=== PATIENT | male | born 1950 | race Caucasian/White ===

== ENCOUNTER → 2016-04-02 | Outpatient (CLI) | payer MEDICARE, OTHER ==
[2016-04-02 14:59] LABS: RBC, Body Fluid 3045000 /uL
== END | disposition home or self-care (01) ==
LOC: LABPRL 11:32
PROVIDERS: ATTEND Orthopaedic Surgery
DX: M25.061 Hemarthrosis, right knee (principal); M79.672 Pain in left foot; S91.332D Puncture wound without foreign body, left foot, subsequent encounter
CPT/HCPCS: 87070; 87075; 87205; 89050

== ENCOUNTER → 2016-11-26 | Outpatient (CLI) | payer MEDICARE, OTHER ==
--- NOTE | 2016-11-26 16:25 | US ---
EXAMINATION TYPE: US venous doppler duplex LE RT DATE OF EXAM: 11/26/2016 4:12 PM COMPARISON: 2014 right lower extremity venous ultrasound January 10 CLINICAL HISTORY: RLE Knee Fusion,Pain M25.461. SIDE PERFORMED: Right TECHNIQUE: The lower extremity deep venous system is examined utilizing real time linear array sonog violette with graded compression, doppler sonography and color-flow sonography. VESSELS IMAGED: External Iliac Vein (EIV) Common Femoral Vein Deep Femoral Vein Greater Saphenous Vein * Femoral Vein Popliteal Vein Small Saphenous Vein * Proximal Calf Veins (* superficial vessels) Right Leg: Negative for DVT Grayscale, color doppler, spectral doppler imaging performed of the deep veins of the right lower ext remity. There is normal flow, compressibility, vascular waveforms. IMPRESSION: No ultrasound evidence for acute DVT in the right lower extremity.
== END | disposition home or self-care (01) ==
LOC: RADUSWWP 15:47
PROVIDERS: ATTEND Orthopaedic Surgery
DX: I80.9 Phlebitis and thrombophlebitis of unspecified site (principal); M25.561 Pain in right knee; T84.022D Instability of internal right knee prosthesis, subsequent encounter; M25.461 Effusion, right knee; Z09 Encounter for follow-up examination after completed treatment for conditions other than malignant neoplasm; Z96.651 Presence of right artificial knee joint

== ENCOUNTER 2017-10-07 12:07 | Emergency (ER) | payer MEDICARE, OTHER ==
[2017-10-07] MEDS ORDERED: GELATIN SPONGE,ABSORB (SMALL) 1 EACH SPONGE TOPICAL STA (12:35)
[2017-10-07 13:08] LABS: Basophils # (A) 0.1 k/uL (0-0.2); Basophils % (A) 1 %; Eosinophils # (A) 0.4 k/uL (0-0.7); Eosinophils % (A) 3 %; HCT 43.8 % (39.0-53.0); HGB 14.8 gm/dL (13.0-17.5); Lymphocytes # (A) 2.2 k/uL (1.0-4.8); Lymphocytes % (A) 20 %; MCH 29.4 pg (25.0-35.0); MCHC 33.9 g/dL (31.0-37.0); MCV 86.7 fL (80.0-100.0); Mean Platelet Volume 7.7; Monocytes # (A) 0.6 k/uL (0-1.0); Monocytes % (A) 5 %; Neutrophils # (A) 7.7 k/uL (1.3-7.7); Neutrophils % (A) 69 %; Platelet Count 226 k/uL (150-450); RBC 5.05 m/uL (4.30-5.90); RDW 14.2 % (11.5-15.5); WBC 11.1 k/uL (3.8-10.6)
[2017-10-07] MEDS ORDERED: GELATIN SPONGE,ABSORB (LARGE) 1 EACH SPONGE TOPICAL STA (13:11)
[2017-10-07 13:17] LABS: INR 3.2 (<1.2); Partial Thromboplastin Time 35.5 sec (22.0-30.0); Prothrombin Time 29.1 sec (9.0-12.0)
[2017-10-07 13:54] VITALS: RESP 20; TEMP 96.2
--- NOTE | 2017-10-07 14:33 | ED ---
ENT HPI - General Chief complaint: ENT Stated complaint: Sore on lip, lip lac Time Seen by Provider: 10/07/17 12:31 Source: patient Mode of arrival: ambulatory Limitations: no limitations - History of Present Illness Initial comments: This is a 66-year-old male with past medical history of prostate cancer s/p prostectomy and lone atrial fibrillation on warfarin who presents for chief complaint of right upper lip sore that will not stop bleeding. Patient states that about 3-4 days ago he noticed a appeared to be cold sore on the right upper lip that was tender to touch. However yesterday it began bleeding randomly he was able to stop the bleeding with pressure after a few hours. At 7 :30 this morning while he was taking his morning coffee his that began to bleed again, again he applied pressure, tried applying ice and teabags however he was unable to get the bleeding to stop. Patient even tried to put super glue on the lip however would not stick because of the bleeding. Pt states he has not had his PT/INR checked since the of last month and that he usually gets it checked on the or . Pt denies any associated symptoms including ulcers/ sores in other areas of the body, numbness tingling of the lips, or oral cavity. Patient denies any recent fever, chills, shortness of breath, chest pain , back pain, abdominal pain, nausea or vomiting, numbness or tingling, dysuria or hematuria, constipation or diarrhea, headaches or visual changes, or any other complaints. - Related Data Home Medications Medication Instructions Recorded Confirmed Metoprolol Tartrate [Lopressor] 50 mg PO HS 08/18/13 03/13/17 Metoprolol Tartrate [Lopressor] 100 mg PO DAILY 08/18/13 03/13/17 Digoxin [Lanoxin] 250 mcg PO DAILY 03/08/17 03/13/17 Dorzolamide-Timolol 2%/0.5% 1 drop BOTH EYES BID 03/08/17 03/13/17 [dorzolamide-Timolol 2%/0.5%] Previous Rx's Medication Instructions Recorded Warfarin [Coumadin] 7 mg PO DAILY@1800 #30 tablet 08/24/13 HYDROcodone/APAP 10-325MG [White 1 - 2 tab PO Q4-6H PRN #90 tab 03/13/17 10-325] Sennosides-Docusate Sodium 1 tab PO BID #60 tablet 03/13/17 [Senokot-S] Warfarin Sodium [Coumadin] 7.5 mg PO DAILY 30 Days #30 tablet 03/13/17 Allergies Allergy/AdvReac Type Severity Reaction Status Date / Time latex Allergy Swelling Verified 10/07/17 12:21 VINYL TAPE Allergy TOOK OFF Uncoded 10/07/17 12:21 SKIN Review of Systems ROS Statement: Those systems with pertinent positive or pertinent negative responses have been documented in the HPI. ROS Other: All systems not noted in ROS Statement are negative. Past Medical History Past Medical History: Atrial Fibrillation, Cancer, COPD, Eye Disorder, Hypertension, Osteoarthritis (OA) Additional Past Medical History / Comment(s): PROSTATE CA, GLAUCOMA, STATES SCARS ON LUNGS FROM PREVIOUS SX, History of Any Multi-Drug Resistant Organisms: None Reported Past Surgical History: Cardiac Ablation, Heart Catheterization, Joint Replacement, Orthopedic Surgery, Prostate Surgery Additional Past Surgical History / Comment(s): RT HIP TUMOR REMOVED, HAS HAD "2 OUTSIDE, AND 2 INSIDE CARDIAC ABLATIONS", RT TKA Past Anesthesia/Blood Transfusion Reactions: Previous Problems w/ Anesthesia, Postoperative Nausea & Vomiting (PONV) Additional Past Anesthesia/Blood Transfusion Reaction / Comment(s): STATES HAD NUMBNESS TO BUTTOCKS FOR 3 WEEKS POST SPINAL ANESTHESIA FOR PROSTATECTOMY Past Psychological History: No Psychological Hx Reported Smoking Status: Former smoker - Past Family History Father Family Medical History: Cancer Additional Family Medical History / Comment(s): PROSTATE General Exam - General Exam Comments Initial Comments: General: The patient is awake and alert, in no distress, and does not appear acutely ill. Eye: Pupils are equal, round and reactive to light, extra-ocular movements are intact. No nystagmus. There is normal conjunctiva bilaterally. No signs of icterus. Ears, nose, mouth and throat: There are moist mucous membranes, there is an actively bleeding <1/2cm superficial ulcerated lesion to the right upper inner lip- no evidence of FB or injury to deeper tissues. Neck: The neck is supple, there is no tenderness or JVD. Cardiovascular: There is a regular rate and rhythm. No murmur, rub or gallop is appreciated. Respiratory: Lungs are clear to auscultation, respirations are non-labored, breath sounds are equal. No wheezes, stridor, rales, or rhonchi. Gastrointestinal: [Soft, non-distended, non-tender abdomen without masses or organomegaly noted. There is no rebound or guarding present. No CVA tenderness. Bowel sounds are unremarkable.] Musculoskeletal: Normal ROM, no tenderness. Strength 5/5. Sensation intact. Pulses equal bilaterally 2+. Neurological: A&O x 3. CN II-XII intact, There are no obvious motor or sensory deficits. Coordination appears grossly intact. Speech is normal. Skin: Skin is warm and dry and no rashes or lesions are noted. Psychiatric: Cooperative, appropriate mood & affect, normal judgment. Limitations: no limitations Course Vital Signs 10/07/17 10/07/17 12:22 13:54 Temperature 97.9 F 96.2 F L Pulse Rate 73 63 Respiratory 18 20 Rate Blood Pressure 148/85 126/68 O2 Sat by Pulse 96 97 Oximetry Medical Decision Making - Medical Decision Making 66-year-old male with past medical history of lone atrial fibrillation on warfarin presents today for chief complaint of right upper lip bleed. CBC, PT, INR and PTT were obtained revealing elevated PT at 29.1, supratherapeutic INR at 3.2 and PTT of 35.5 patient hemoglobin within normal limits at 14.8. Patient denies any headache, nausea, vomiting, visual changes, abdominal pain, ecchymosis, melena or hematochezia, or bleeding from any other areas of the body. Gelfoam was applied topically to the area of bleeding. Upon reevaluation of the patient had remembered that he took 2 doses of warfarin on Wednesday and accident, he did not mention this during original history taking. After multiple reapplications of gelfoam pt stopped actively bleeding. Case was discussed with Dr. Villatoro in detail at this time we feel that the patient's right lip bleeding is due to supratherapeutic INR from accidental double dosage of warfarin on Wednesday, given patient's negative review of systems, benign physical examination, heart rate and blood pressure within normal limits-no tachycardia, mild elevation of INR and stable hemoglobin at 14.8 We have low suspicion for other areas of active bleeding. Patient was educated risks of supratherapeutic INR, warning symptoms of bleeding, and instructed to follow-up with his primary care for follow-up labs and further medication treatment tomorrow. Patient agrees with plan, and was discharged in stable condition - Lab Data Result diagrams: 10/07/17 12:59 Lab Results 10/07/17 10/07/17 Range/Units 12:59 12:59 WBC 11.1 H (3.8-10.6) k/uL RBC 5.05 (4.30-5.90) m/uL Hgb 14.8 (13.0-17.5) gm/dL Hct 43.8 (39.0-53.0) % MCV 86.7 (80.0-100.0) fL MCH 29.4 (25.0-35.0) pg MCHC 33.9 (31.0-37.0) g/dL RDW 14.2 (11.5-15.5) % Plt Count 226 (150-450) k/uL Neutrophils % 69 % Lymphocytes % 20 % Monocytes % 5 % Eosinophils % 3 % Basophils % 1 % Neutrophils # 7.7 (1.3-7.7) k/uL Lymphocytes # 2.2 (1.0-4.8) k/uL Monocytes # 0.6 (0-1.0) k/uL Eosinophils # 0.4 (0-0.7) k/uL Basophils # 0.1 (0-0.2) k/uL PT 29.1 H (9.0-12.0) sec INR 3.2 H (<1.2) APTT 35.5 H (22.0-30.0) sec Disposition Clinical Impression: Supratherapeutic INR, Superficial injury of lip Disposition: HOME SELF-CARE Condition: Good Instructions: Elevated INR (ED) Additional Instructions: Please skip next dose of warfarin as discussed. Please follow-up with family doctor tomorrow. Please return to emergency room if the symptoms increase or worsen or for any other concerns. Is patient prescribed a controlled substance at d/c from ED?: No Referrals: [facility],Clinic [Primary Care Provider] - 1-2 days Time of Disposition: 16:53
[2017-10-07] MEDS ORDERED: LIDOCAINE 1%-EPI 1:100,000 30 ML VIAL SQ ONE (16:07)
[2017-10-07 17:02] VITALS: BP 139/88; PULSE 77
== END 2017-10-07 17:02 | disposition home or self-care (01) ==
LOC: EC 12:07
DX: S09.93XA Unspecified injury of face, initial encounter (principal); R79.1 Abnormal coagulation profile; I48.91 Unspecified atrial fibrillation; I10 Essential (primary) hypertension; Z87.891 Personal history of nicotine dependence; Z85.9 Personal history of malignant neoplasm, unspecified; Z95.818 Presence of other cardiac implants and grafts; Z79.899 Other long term (current) drug therapy; Z91.040 Latex allergy status; Z91.048 Other nonmedicinal substance allergy status; Z53.8 Procedure and treatment not carried out for other reasons
CPT/HCPCS: 36415; 85025; 85610; 85730; 99283

== ENCOUNTER 2022-12-30 12:04 | Inpatient (IN) | payer MEDICARE, OTHER ==
[2022-12-30] MEDS ORDERED: FUROSEMIDE 10 MG/ML 10 ML VIAL IV STA (13:20)
--- NOTE | 2022-12-30 13:23 | ED ---
General Adult HPI - General Chief complaint: Recheck/Abnormal Lab/Rx Stated complaint: leg swelling Time Seen by Provider: 12/30/22 13:05 Source: patient, RN notes reviewed, old records reviewed Mode of arrival: ambulatory - History of Present Illness Initial comments: This is a 72-year-old male presents emergency Department complaining of swollen legs she states that getting considerably worse per patient states he is short of breath but no worse than normal. Patient states his legs are so big that it is difficult to walk on them he is worried that he is given a fall and hurt himself. Patient states he is on Lasix twice a day and is not helping. Patient also complains of having scratched his leg and now the area around that scratches very red. Patient denies any fever chills. Patient denies any chest pain or palpitations. Patient states she doesn't otherwise legs are swollen. Patient states he does take metoprolol for his atrial fibrillation. Patient denies any abdominal pain patient denies nausea vomiting diarrhea - Related Data Home Medications Medication Instructions Recorded Confirmed Metoprolol Tartrate [Lopressor] 100 mg PO DAILY 08/18/13 12/30/22 Aspirin EC [Ecotrin Low Dose] 81 mg PO DAILY 12/30/22 12/30/22 Cholecalciferol [Vitamin D3 (25 50 mcg PO DAILY 12/30/22 12/30/22 Mcg = 1000 Iu)] Furosemide [Lasix] 40 mg PO BID@0500,1130 12/30/22 12/30/22 Latanoprost [Latanoprost 0.005%] 1 drop BOTH EYES HS 12/30/22 12/30/22 Metoprolol Tartrate [Lopressor] 50 mg PO HS 12/30/22 12/30/22 Warfarin [Coumadin] 7 mg PO HS 12/30/22 12/30/22 Zinc Gluconate [Zinc] 50 mg PO DAILY 12/30/22 12/30/22 Allergies Allergy/AdvReac Type Severity Reaction Status Date / Time latex Allergy Swelling Verified 12/30/22 16:32 at contact potassium chloride AdvReac Nausea & Verified 12/30/22 16:32 Vomiting & Diarrhea VINYL TAPE AdvReac TOOK OFF Uncoded 12/30/22 16:32 SKIN Review of Systems ROS Statement: Those systems with pertinent positive or pertinent negative responses have been documented in the HPI. ROS Other: All systems not noted in ROS Statement are negative. Past Medical History Past Medical History: Atrial Fibrillation, Cancer, COPD, Diabetes Mellitus, Eye Disorder, Hypertension, Osteoarthritis (OA) Additional Past Medical History / Comment(s): PROSTATE CA, GLAUCOMA, STATES SCARS ON LUNGS FROM PREVIOUS SX, History of Any Multi-Drug Resistant Organisms: None Reported Past Surgical History: Cardiac Ablation, Heart Catheterization, Joint Replac ement, Orthopedic Surgery, Prostate Surgery Additional Past Surgical History / Comment(s): RT HIP TUMOR REMOVED, HAS HAD "2 OUTSIDE, AND 2 INSIDE CARDIAC ABLATIONS", RT TKA Past Anesthesia/Blood Transfusion Reactions: Previous Problems w/ Anesthesia, Postoperative Nausea & Vomiting (PONV) Additional Past Anesthesia/Blood Transfusion Reaction / Comment(s): STATES HAD NUMBNESS TO BUTTOCKS FOR 3 WEEKS POST SPINAL ANESTHESIA FOR PROSTATECTOMY Past Psychological History: No Psychological Hx Reported Smoking Status: Former smoker Past Alcohol Use History: Occasional Past Drug Use History: Marijuana - Past Family History Father Family Medical History: Cancer Additional Family Medical History / Comment(s): PROSTATE General Exam - General Exam Comments Initial Comments: GENERAL: Patient is well-developed and well-nourished. Patient is nontoxic and well- hydrated and is in no acute distress. ENT: Neck is soft and supple. No significant lymphadenopathy is noted. Oropharynx is clear. Moist mucous membranes. Neck has full range of motion without eliciting any pain. EYES: The sclera were anicteric and conjunctiva were pink and moist. Extraocular movements were intact and pupils were equal round and reactive to light. Eyelids were unremarkable. PULMONARY: Unlabored respirations. Good breath sounds bilaterally. No audible rales rhonchi or wheezing was noted. CARDIOVASCULAR: There is a regular rate and rhythm without any murmurs gallops or rubs. ABDOMEN: Soft and nontender with normal bowel sounds. SKIN: Patient has a small area of excoriation where he scratched on his right lower leg in the area around it is very erythematous. NEUROLOGIC: Patient is alert and oriented x3. Cranial nerves II through XII are grossly intact. Motor and sensory are also intact. Normal speech, volume and content. Symmetrical smile. MUSCULOSKELETAL: Normal extremities with adequate strength and full range of motion. 3+ edema bilaterally. LYMPHATICS: No significant lymphadenopathy is noted PSYCHIATRIC: Normal psychiatric evaluation. Course Vital Signs 10/11/23 10/11/23 10/11/23 12:35 13:16 14:09 Temperature 98 F Pulse Rate 88 85 99 Respiratory 18 20 18 Rate Blood Pressure 134/81 121/85 118/77 O2 Sat by Pulse 95 96 96 Oximetry 12/30/22 12/30/22 12/30/22 15:34 16:05 17:13 Temperature Pulse Rate 100 123 H 109 H Respiratory 19 18 19 Rate Blood Pressure 103/85 113/89 114/80 O2 Sat by Pulse 98 97 99 Oximetry Medical Decision Making - Medical Decision Making EKG is interpreted by myself. EKG shows atrial fibrillation with rapid ventricular response at 100 bpm QRS is 101 Q-T intervals 367 QTC is 424. Patient's EKG shows no ST segment elevation or depression.Was pt. sent in by a medical professional or institution ([facility], P[employer]ER TESTER, urgent care, hospital, or [place] health care facility...) When possible be specific @ -No Did you speak to anyone other than the patient for history (EMS, parent, family, police, friend...)? What history was obtained from this source @ -No Did you review nursing and triage notes (agree or disagree)? Why? @ -I reviewed and agree with nursing and triage notes Were old charts reviewed (outside hosp., previous admission, EMS record, old EK G, old radiological studies, urgent care reports/EKG's, [place] health care facility records)? Report findings @ -I reviewed prior chart from prior laboratory this patient Differential Diagnosis (chest pain, altered mental status, abdominal pain women, abdominal pain men, vaginal bleeding, weakness, fever, dyspnea, syncope, headache, dizziness, GI bleed, back pain, seizure, CVA, palpatations, mental health, musculoskeletal)? @ -Cellulitis, pedal edema, pulmonary edema, DVT, is not all inclusive list EKG interpreted by me (3pts min.). @ -As above X-rays interpreted by me (1pt min.). @ -Chest x-ray shows no acute abnormality CT interpreted by me (1pt min.). @ -None done U/S interpreted by me (1pt. min.). @ -None done What testing was considered but not performed or refused? (CT, X-rays, U/S, labs)? Why? @ -None What meds were considered but not given or refused? Why? @ -None Did you discuss the management of the patient with other professionals (professionals i.e. , PA, PAPER TESTER, lab, RT, psych nurse, manager social responsibility, blocker polishing, teacher, fare enforcement officer, upper caser)? Give summary @ -I spoke with sound physician's and they agreed to admit the patient Was smoking cessation discussed for >3mins.? @ -No Was critical care preformed (if so, how long)? @ -No Were there social determinants of health that impacted care today? How? (Homelessness, low income, unemployed, alcoholism, drug addiction, transportation, low edu. Level, literacy, decrease access to med. care, penitentiary, rehab)? @ -No Was there de-escalation of care discussed even if they declined (Discuss DNR or withdrawal of care, Hospice)? DNR status @ -No What co-morbidities impacted this encounter? (DM, HTN, Smoking, COPD, CAD, Cancer, CVA, ARF, Chemo, Hep., AIDS, mental health diagnosis, sleep apnea, morbid obesity)? @ -None Was patient admitted / discharged? Hospital course, mention meds given and route, prescriptions, significant lab abnormalities, going to OR and other pertinent info. @ -Patient came into the hospital suspect this is swollen and there was an area he scratched and is become very erythematous. Patient states she's unstable on his feet x-rays and following get hurt. Patient states the swelling is legs continues to get worse and worse he does not to do about it. Patient states he is unable to get his compression stockings on or off Undiagnosed new problem with uncertain prognosis? @ -No Drug Therapy requiring intensive monitoring for toxicity (Heparin, Nitro, Insulin, Cardizem)? @ -No Were any procedures done? @ -No Diagnosis/symptom? @ -Pedal edema Acute, or Chronic, or Acute on Chronic? @ -Acute on chronic Uncomplicated (without systemic symptoms) or Complicated (systemic symptoms)? @ -Complicated Side effects of treatment? @ -No Exacerbation, Progression, or Severe Exacerbation? @ -No Poses a threat to life or bodily function? How? (Chest pain, [place], MA, pneumonia, PE, COPD, DKA, ARF, appy, cholecystitis, CVA, Diverticulitis, Homicidal, Suicidal, threat to staff... and all critical care pts) @ -No Diagnosis/symptom? @ -Cellulitis leg Acute, or Chronic, or Acute on Chronic? @ -Acute Uncomplicated (without systemic symptoms) or Complicated (systemic symptoms)? @ -Complicated Side effects of treatment? @ -none Exacerbation, Progression, or Severe Exacerbation] @ -no Poses a threat to life or bodily function? @ -no - Lab Data Result diagrams: 12/30/22 13:28 12/30/22 13:28 Lab Results 12/30/22 12/30/22 12/30/22 Range/Units 13:28 13:28 13:28 WBC 9.7 (3.8-10.6) k/uL RBC 4.43 (4.30-5.90) m/uL Hgb 13.2 (13.0-17.5) gm/dL Hct 39.2 (39.0-53.0) % MCV 88.3 (80.0-100.0) fL MCH 29.8 (25.0-35.0) pg MCHC 33.7 (31.0-37.0) g/dL RDW 13.8 (11.5-15.5) % Plt Count 244 (150-450) k/uL MPV 8.0 Neutrophils % 71 % Lymphocytes % 20 % Monocytes % 4 % Eosinophils % 3 % Basophils % 1 % Neutrophils # 6.9 (1.3-7.7) k/uL Lymphocytes # 1.9 (1.0-4.8) k/uL Monocytes # 0.4 (0-1.0) k/uL Eosinophils # 0.3 (0-0.7) k/uL Basophils # 0.1 (0-0.2) k/uL PT 24.2 H (9.0-12.0) sec INR 2.5 H (<1.2) APTT 39.3 H (22.0-30.0) sec Sodium 139 (137-145) mmol/L Potassium 5.2 H (3.5-5.1) mmol/L Chloride 103 (98-107) mmol/L Carbon Dioxide 24 (22-30) mmol/L Anion Gap 12 mmol/L BUN 27 H (9-20) mg/dL Creatinine 0.79 (0.66-1.25) mg/dL Est GFR (CKD-EPI)AfAm >90 (>60 ml/min/1.73 sqM) Est GFR (CKD-EPI)NonAf 89 (>60 ml/min/1.73 sqM) Glucose 129 H (74-99) mg/dL Plasma Lactic Acid Dragan (0.7-2.0) mmol/L Calcium 9.0 (8.4-10.2) mg/dL Magnesium 2.0 (1.6-2.3) mg/dL Total Bilirubin 0.7 (0.2-1.3) mg/dL AST 34 (17-59) U/L ALT 18 (4-49) U/L Alkaline Phosphatase 59 (38-126) U/L Troponin I (0.000-0.034) ng/mL NT-Pro-B Natriuret Pep 593 pg/mL Total Protein 7.7 (6.3-8.2) g/dL Albumin 4.1 (3.5-5.0) g/dL 12/30/22 12/30/22 Range/Units 13:28 13:28 WBC (3.8-10.6) k/uL RBC (4.30-5.90) m/uL Hgb (13.0-17.5) gm/dL Hct (39.0-53.0) % MCV (80.0-100.0) fL MCH (25.0-35.0) pg MCHC (31.0-37.0) g/dL RDW (11.5-15.5) % Plt Count (150-450) k/uL MPV Neutrophils % % Lymphocytes % % Monocytes % % Eosinophils % % Basophils % % Neutrophils # (1.3-7.7) k/uL Lymphocytes # (1.0-4.8) k/uL Monocytes # (0-1.0) k/uL Eosinophils # (0-0.7) k/uL Basophils # (0-0.2) k/uL PT (9.0-12.0) sec INR (<1.2) APTT (22.0-30.0) sec Sodium (137-145) mmol/L Potassium (3.5-5.1) mmol/L Chloride (98-107) mmol/L Carbon Dioxide (22-30) mmol/L Anion Gap mmol/L BUN (9-20) mg/dL Creatinine (0.66-1.25) mg/dL Est GFR (CKD-EPI)AfAm (>60 ml/min/1.73 sqM) Est GFR (CKD-EPI)NonAf (>60 ml/min/1.73 sqM) Glucose (74-99) mg/dL Plasma Lactic Acid Dragan 1.6 (0.7-2.0) mmol/L Calcium (8.4-10.2) mg/dL Magnesium (1.6-2.3) mg/dL Total Bilirubin (0.2-1.3) mg/dL AST (17-59) U/L ALT (4-49) U/L Alkaline Phosphatase (38-126) U/L Troponin I <0.012 (0.000-0.034) ng/mL NT-Pro-B Natriuret Pep pg/mL Total Protein (6.3-8.2) g/dL Albumin (3.5-5.0) g/dL Disposition Clinical Impression: Cellulitis, leg, Pedal edema Disposition: ADMITTED IP TO THIS HOSP Referrals: [facility],Clinic [Primary Care Provider] - 1-2 days Time of Disposition: 17:35
[2022-12-30 13:41] LABS: Basophils # (A) 0.1 k/uL (0-0.2); Basophils % (A) 1 %; Eosinophils # (A) 0.3 k/uL (0-0.7); Eosinophils % (A) 3 %; HCT 39.2 % (39.0-53.0); HGB 13.2 gm/dL (13.0-17.5); Lymphocytes # (A) 1.9 k/uL (1.0-4.8); Lymphocytes % (A) 20 %; MCH 29.8 pg (25.0-35.0); MCHC 33.7 g/dL (31.0-37.0); MCV 88.3 fL (80.0-100.0); Monocytes # (A) 0.4 k/uL (0-1.0); Monocytes % (A) 4 %; Neutrophils # (A) 6.9 k/uL (1.3-7.7); Neutrophils % (A) 71 %; Platelet Count 244 k/uL (150-450); RBC 4.43 m/uL (4.30-5.90); RDW 13.8 % (11.5-15.5); WBC 9.7 k/uL (3.8-10.6)
[2022-12-30 13:47] LABS: INR 2.5 (<1.2); Partial Thromboplastin Time 39.3 sec (22.0-30.0); Prothrombin Time 24.2 sec (9.0-12.0)
[2022-12-30 14:00] LABS: ALT 18 U/L (4-49); AST 34 U/L (17-59); African American GFR (CKD) >90 (>60 ml/min/1.73 sqM); Albumin 4.1 g/dL (3.5-5.0); Alkaline Phosphatase 59 U/L (38-126); Anion Gap 12 mmol/L; Blood Urea Nitrogen 27 mg/dL (9-20); Carbon Dioxide 24 mmol/L (22-30); Chloride 103 mmol/L (98-107); Glucose 129 mg/dL (74-99); Non-African American GFR(CKD) 89 (>60 ml/min/1.73 sqM); Sodium 139 mmol/L (137-145); Total Bilirubin 0.7 mg/dL (0.2-1.3); Total Protein 7.7 g/dL (6.3-8.2)
[2022-12-30 14:07] LABS: Potassium 5.2 mmol/L (3.5-5.1)
[2022-12-30 14:08] LABS: NT-Pro-B-Type Natriuretic Pept 593 pg/mL
--- NOTE | 2022-12-30 14:08 | XR ---
EXAMINATION TYPE: XR chest 2V DATE OF EXAM: 12/30/2022 COMPARISON: NONE HISTORY: Shortness of breath TECHNIQUE: Frontal and lateral views of the chest are obtained. FINDINGS: Scattered senescent parenchymal changes noted. Hyperinflation compatible with COPD. There is bronchial wall thickening as well as mild interstitial prominence about the right perihilar region. Correlate for underlying pneumonitis. Heart size is stable. Mediastinal structures are stable and grossly unremarkable. No evidence for hilar prominence. Degenerative changes dorsal spine. IMPRESSION: 1. There is bronchial wall thickening as well as mild interstitial prominence about the right perihil ar region. Correlate for underlying pneumonitis.
--- NOTE | 2022-12-30 22:03 | P.HPIM ---
History of Present Illness H&P Date: 12/30/22 Patient is a 72-year-old male with a PMH of A. fib on Coumadin, chronic lower extremity edema (unknown cause as per patient) on Lasix, prostate cancer status post prostatectomy who presents to the emergency room with complaints of lower extremity swelling and redness, with shortness of breath. Patient reports gradually worsening lower extremity edema over the past 1 year despite compliance with oral Lasix. Denies ever being diagnosed with congestive heart failure. Also reports having an abrasion on the right anterior leg multiple times from a chair he was using over the past 2 weeks resulting in painful redness and swelling of the right leg. Denies chest discomfort, shortness of breath, cough, fever, chills, nausea, vomiting, diaphoresis, or dizziness. Reports ambulating without assistive devices at home but occasionally using a cane outside. In the emergency room, chest x-ray revealed bronchial wall thickening with mild interstitial prominence, concerning for pneumonitis. EKG revealed A. fib with RVR at 100 bpm with an incomplete right bundle branch block with T-wave inversion in lead V3. Laboratory evaluation was remarkable for troponin less than 0.012, proBNP 593, glucose 129, lactic acid 1.6, and potassium 5.2 (hemolyzed), and INR 2.5. ED documentation reviewed and case discussed with ED provider. Review of systems: Pertinent positives and negatives as discussed in HPI, a complete review of systems was performed and all other systems are negative. Physical examination: Vital signs reviewed General: non toxic, no distress, appears at stated age, morbidly obese Derm: warm, bilateral lower extremity venous stasis changes with right lower extremity anterior erythema and warmth with tenderness and oozing Head: atraumatic, normocephalic, symmetric Eyes: EOMI, no lid lag, anicteric sclera, pupils equal round reactive to light ENT: Nose and ears atraumatic Neck: No cervical lymphadenopathy, trachea midline, supple Mouth: no lip lesion, mucus membranes moist Cardiovascular: Irregularly irregular, no murmur, positive dorsalis pedis pulse bilateral, 2+ bilateral lower extremity pitting edema Lungs: CTA bilateral, no rhonchi, no rales, no accessory muscle use Abdominal: soft, nontender to palpation, no guarding Ext: muscle strength 5 out of 5 in all 4 extremities grossly, no gross muscle atrophy, no contractures, Neuro: CN II-XI grossly intact, no gross focal neuro deficits Psych: Alert, oriented, appropriate affect Assessment: Right lower extremity cellulitis Bilateral lower extremity edema, rule out congestive heart failure (borderline proBNP) Bridgett almanzar, on Coumadin (therapeutic INR) Imaging: In the emergency room, chest x-ray revealed bronchial wall thickening with mild interstitial prominence, concerning for pneumonitis. EKG revealed A. fib with RVR at 100 bpm with an incomplete right bundle branch block with T-wave inversion in lead V3. Data Review: Laboratory evaluation was remarkable for troponin less than 0.012, proBNP 593, glucose 129, lactic acid 1.6, and potassium 5.2 (hemolyzed), and INR 2.5. Plan: Continue ceftriaxone IV for Streptococcus and MSSA coverage. No obvious indication for MRSA coverage noted F/u blood cultures Obtain echocardiogram Cardiac monitoring Continue Lasix 40 mg IV every 12 hourly Intake and output, daily weights Monitor electrolytes daily DVT prophylaxis: Coumadin The patient is admitted with an anticipated greater than 2 midnight stay for evaluation of cellulitis CODE STATUS: Full Code Discussed with: Patient Anticipated discharge place: Home Past Medical History Past Medical History: Atrial Fibrillation, Cancer, COPD, Diabetes Mellitus, Eye Disorder, Hypertension, Osteoarthritis (OA) Additional Past Medical History / Comment(s): PROSTATE CA, GLAUCOMA, STATES SCARS ON LUNGS FROM PREVIOUS SX, History of Any Multi-Drug Resistant Organisms: None Reported Past Surgical History: Cardiac Ablation, Heart Catheterization, Joint Replacement, Orthopedic Surgery, Prostate Surgery Additional Past Surgical History / Comment(s): RT HIP TUMOR REMOVED, HAS HAD "2 OUTSIDE, AND 2 INSIDE CARDIAC ABLATIONS", RT TKA Past Anesthesia/Blood Transfusion Reactions: Previous Problems w/ Anesthesia, Postoperative Nausea & Vomiting (PONV) Additional Past Anesthesia/Blood Transfusion Reaction / Comment(s): STATES HAD NUMBNESS TO BUTTOCKS FOR 3 WEEKS POST SPINAL ANESTHESIA FOR PROSTATECTOMY Past Psychological History: No Psychological Hx Reported Smoking Status: Former smoker Past Alcohol Use History: Occasional Past Drug Use History: Marijuana - Past Family History Father Family Medical History: Cancer Additional Family Medical History / Comment(s): PROSTATE Medications and Allergies Home Medications Medication Instructions Recorded Confirmed Type Metoprolol Tartrate [Lopressor] 100 mg PO DAILY 08/18/13 12/30/22 History Aspirin EC [Ecotrin Low Dose] 81 mg PO DAILY 12/30/22 12/30/22 History Cholecalciferol [Vitamin D3 (25 50 mcg PO DAILY 12/30/22 12/30/22 History Mcg = 1000 Iu)] Furosemide [Lasix] 40 mg PO BID@0500,1130 12/30/22 12/30/22 History Latanoprost [Latanoprost 0.005%] 1 drop BOTH EYES HS 12/30/22 12/30/22 History Metoprolol Tartrate [Lopressor] 50 mg PO HS 12/30/22 12/30/22 History Warfarin [Coumadin] 7 mg PO HS 12/30/22 12/30/22 History Zinc Gluconate [Zinc] 50 mg PO DAILY 12/30/22 12/30/22 History Allergies Allergy/AdvReac Type Severity Reaction Status Date / Time latex Allergy Swelling Verified 12/30/22 16:32 at contact potassium chloride AdvReac Nausea & Verified 12/30/22 16:32 Vomiting & Diarrhea VINYL TAPE AdvReac TOOK OFF Uncoded 12/30/22 16:32 SKIN Physical Exam Vitals: Vital Signs Temp Pulse Resp BP Pulse Ox 12/30/22 20:00 122 H 18 130/87 98 12/30/22 18:08 98.1 F 104 H 18 117/82 96 12/30/22 17:13 109 H 19 114/80 99 12/30/22 16:05 123 H 18 113/89 97 12/30/22 15:34 100 19 103/85 98 12/30/22 14:09 99 18 118/77 96 12/30/22 13:16 85 20 121/85 96 12/30/22 12:35 98 F 88 18 134/81 95 Intake and Output 12/30/22 12/30/22 12/30/22 06:59 14:59 22:59 Output Total 1100 Balance -1100 Output: Urine 1100 Other: Weight 140.614 kg Results CBC & Chem 7: 12/30/22 13:28 12/30/22 13:28 Labs: Abnormal Lab Results - Last 24 Hours (Table) 12/30/22 12/30/22 Range/Units 13:28 13:28 PT 24.2 H (9.0-12.0) sec INR 2.5 H (<1.2) APTT 39.3 H (22.0-30.0) sec Potassium 5.2 H (3.5-5.1) mmol/L BUN 27 H (9-20) mg/dL Glucose 129 H (74-99) mg/dL
[2022-12-30] MEDS: FUROSEMIDE 10 MG/ML 10 ML VIAL IV SCH (22:42)
[2022-12-31] MEDS ORDERED: FUROSEMIDE 10 MG/ML 10 ML VIAL IV SCH
[2022-12-31] MEDS: WARFARIN 2 MG TAB PO SCH ×2 (01:00→22:50)
[2022-12-31] MEDS ORDERED: METOPROLOL TARTRATE 50 MG TAB PO SCH (01:00)
[2022-12-31] MEDS: WARFARIN 5 MG TAB PO SCH ×2 (01:01→22:50)
[2022-12-31] MEDS: METOPROLOL TARTRATE 50 MG TAB PO SCH ×3 (01:01→22:29)
[2022-12-31 07:47] LABS: HCT 42.1 % (39.0-53.0); HGB 13.9 gm/dL (13.0-17.5); MCH 29.2 pg (25.0-35.0); MCV 88.4 fL (80.0-100.0); Mean Platelet Volume 8.2; Platelet Count 248 k/uL (150-450); RBC 4.76 m/uL (4.30-5.90); RDW 13.5 % (11.5-15.5); WBC 10.1 k/uL (3.8-10.6)
[2022-12-31 07:48] LABS: INR 2.2 (<1.2); Prothrombin Time 21.8 sec (9.0-12.0)
[2022-12-31 08:05] LABS: African American GFR (CKD) >90 (>60 ml/min/1.73 sqM); Anion Gap 12 mmol/L; Blood Urea Nitrogen 24 mg/dL (9-20); Calcium 9.1 mg/dL (8.4-10.2); Carbon Dioxide 25 mmol/L (22-30); Chloride 103 mmol/L (98-107); Glucose 124 mg/dL (74-99); Non-African American GFR(CKD) 90 (>60 ml/min/1.73 sqM); Sodium 140 mmol/L (137-145)
[2022-12-31] MEDS: ASPIRIN 81 MG PO SCH (08:16)
[2022-12-31] MEDS: FUROSEMIDE 10 MG/ML 10 ML VIAL IV SCH ×2 (11:29→22:29)
--- NOTE | 2022-12-31 15:14 | P.PN ---
Subjective Progress Note Date: 12/31/22 Patient is a 72-year-old male with a PMH of A. jenelle on Coumadin, chronic lower extremity edema (unknown cause as per patient) on Lasix, prostate cancer status post prostatectomy who presents to the emergency room with complaints of lower extremity swelling and redness, with shortness of breath. Patient reports gradually worsening lower extremity edema over the past 1 year despite compliance with oral Lasix. Denies ever being diagnosed with congestive heart failure. Also reports having an abrasion on the right anterior leg multiple times from a chair he was using over the past 2 weeks resulting in painful redness and swelling of the right leg. Denies chest discomfort, shortness of breath, cough, fever, chills, nausea, vomiting, diaphoresis, or dizziness. Reports ambulating without assistive devices at home but occasionally using a cane outside. In the emergency room, chest x-ray revealed bronchial wall thickening with mild interstitial prominence, concerning for pneumonitis. EKG revealed A. fib with RVR at 100 bpm with an incomplete right bundle branch block with T-wave inversion in lead V3. Laboratory evaluation was remarkable for troponin less than 0.012, proBNP 593, glucose 129, lactic acid 1.6, and potassium 5.2 (hemolyzed), and INR 2.5. Patient was seen and examined. Continues to report RLE > LLE swelling and redness. Otherwise no complaints. CBC unremarkable. INR 2.2. BMP BUN 24, glucose 124. General: non toxic, no distress, appears at stated age, morbidly obese Derm: warm, bilateral lower extremity venous stasis changes with right lower extremity anterior erythema and warmth with tenderness and oozing Head: atraumatic, normocephalic, symmetric Eyes: EOMI, no lid lag, anicteric sclera ENT: Nose and ears atraumatic Neck: No cervical lymphadenopathy, trachea midline, supple Cardiovascular: Irregularly irregular, no murmur, positive dorsalis pedis pulse bilateral, 2+ bilateral lower extremity pitting edema Lungs: CTA bilateral, no rhonchi, no rales, no accessory muscle use Ext: muscle strength 5 out of 5 in all 4 extremities grossly, no gross muscle atrophy, no contractures, Neuro: no gross focal neuro deficits Psych: Alert, oriented, appropriate affect Right lower extremity cellulitis Bilateral lower extremity edema, rule out congestive heart failure (borderline proBNP) ARodrigo almanzar, on Coumadin (therapeutic INR) Based on my assessment of this patient, this patient meets a high complexity level of care. Patient has an acute diagnosis of RLE cellulitis and bilateral pitting edema that poses a threat to life or bodily function. Right lower extremity cellulitis: Rocephin 2g IV QD. Follow BCx. Obtain ESR and CRP. Bilateral lower extremity edema, rule out congestive heart failure (borderline proBNP): Lasix 40 mg IV BID. Awaiting echocardiogram. A. fib, on Coumadin (therapeutic INR) I have reviewed the following protection consultant notes: I have reviewed the results of the following tests: CBC, BMP I have ordered the following tests: ESR, CRP, BMP I have discussed the care of this patient with the following independent historian: I have independently interpreted the following test below: I have discussed the management of this patient with the following physician: This patient has a high risk of morbidity due to the following reasons: Lasix IV - intensive monitoring - renal function Objective - Vital Signs Vital signs: Vital Signs Temp 97.3 F L 12/31/22 08:10 Pulse 88 12/31/22 11:21 Resp 18 12/31/22 11:21 BP 126/80 12/31/22 11:21 Pulse Ox 98 12/31/22 11:21 FiO2 Intake & Output 12/30/22 12/31/22 12/31/22 18:59 06:59 18:59 Output Total 1100 1860 320 Balance -1100 -1860 -320 Weight 140.614 kg Output: Urine 1100 1860 320 Other: # Voids 2 1 - Labs CBC & Chem 7: 12/31/22 07:08 12/31/22 07:08 Labs: Abnormal Lab Results - Last 24 Hours (Table) 12/31/22 12/31/22 Range/Units 07:08 07:08 PT 21.8 H (9.0-12.0) sec INR 2.2 H (<1.2) BUN 24 H (9-20) mg/dL Glucose 124 H (74-99) mg/dL
--- NOTE | 2022-12-31 20:02 | CA ---
Transthoracic Echo Report Name: Parveen Corcoran Age: 72 Gender: M : 1950 Exam Date: 12/31/2022 14:29 Exam Location: [place] [facility] Ht (in): 70 Wt (lb): 310 Ordering Physician: Malclom Burns MD Attending/Referring Phys: Psychiatric Technician Akua Reddy RDCS Procedure CPT: Indications: kerri SAMANTHA Cardiac Hx: Technical Quality: Technically difficult study Contrast 1: Definity Total Dose (mL): 2 Contrast 2: Total Dose (mL): MEASUREMENTS (Male / Female) Normal Values 2D ECHO LV Diastolic Diameter PLAX 4.8 cm 4.2 - 5.9 / 3.9 - 5.3 cm LV Systolic Diameter PLAX 4.1 cm IVS Diastolic Thickness 1.3 cm 0.6 - 1.0 / 0.6 - 0.9 cm LVPW Diastolic Thickness 1.3 cm 0.6 - 1.0 / 0.6 - 0.9 cm LV Relative Wall Thickness 0.5 RV Internal Dim ED PLAX 3.9 cm LA Systolic Diameter LX 4.4 cm 3.0 - 4.0 / 2.7 - 3.8 cm LV Diastolic Volume MOD BP 80.0 cm??? 67 - 155 / 56 - 104 cm??? LV Systolic Volume MOD BP 20.6 cm??? 22 - 58 / 19 - 49 cm??? LV Ejection Fraction MOD BP 74.2 % >= 55 % LV Cardiac Index MOD BP 2546.6 cm???/min???m??? LV Diastolic Volume MOD 4C 100.7 cm??? LV Systolic Volume MOD 4C 39.3 cm??? LV Ejection Fraction MOD 4C 61.0 % LV Cardiac Index MOD 4C 2633.3 cm???/min???m??? LV Diastolic Length 4C 7.8 cm LV Systolic Length 4C 6.9 cm LV Diastolic Volume MOD 2C 54.3 cm??? LV Systolic Volume MOD 2C 11.4 cm??? LV Ejection Fraction MOD 2C 79.0 % LV Cardiac Index MOD 2C 1841.7 cm???/min???m??? LV Diastolic Length 2C 6.6 cm LV Systolic Length 2C 6.8 cm LA Volume 81.6 cm??? 18 - 58 / 22 - 52 cm??? LA Volume Index 30.2 cm???/m??? 16 - 28 cm???/m??? M-MODE Aortic Root Diameter MM 3.8 cm MV E Point Septal Separation 1.1 cm AV Cusp Separation MM 2.3 cm DOPPLER AV Peak Velocity 96.2 cm/s AV Peak Gradient 3.7 mmHg MV Area PHT 3.4 cm??? Mitral E Point Velocity 85.4 cm/s Mitral A Point Velocity 63.0 cm/s Mitral E to A Ratio 1.4 MV Deceleration Time 223.1 ms TR Peak Velocity 257.1 cm/s TR Peak Gradient 26.4 mmHg Right Ventricular Systolic Press 29.8 mmHg FINDINGS Left Ventricle Left ventricular ejection fraction is estimated at 40-45 %. Left ventricular cavity size normal. Mild concentric left ventricular hypertrophy. Right Ventricle Moderate right ventricular dilatation. Right ventricular systolic pressure within normal limits. Right Atrium Normal right atrial size. Left Atrium Mildly increased left atrial diameter. Mildly increased left atrial volume. Mildly increased left atrial area. Mitral Valve Structurally normal mitral valve. Mild mitral regurgitation. Aortic Valve Trileaflet aortic valve. No aortic valve stenosis or regurgitation. Tricuspid Valve Structurally normal tricuspid valve. Trace to mild tricuspid regurgitation. Pulmonic Valve Pulmonic valve not well visualized. Pericardium No pericardial effusion. Aorta Mild aortic dilatation at the level of the sinuses of valsalva 38 mm CONCLUSIONS Reduced LV systolic function ejection fraction around 40-45% large apical hypokinesis Enlarged right ventricle Previewed by: Dr. Buzz Stapleton MD (Electronically Signed) Final Date: 31 December 2022 20:01
[2022-12-31] MEDS: LATANOPROST 0.005% OPHTH DROPS 2.5 ML BTL BOTH EYES SCH (22:50)
[2023-01-01] MEDS ORDERED: METOPROLOL TARTRATE 25 MG TAB PO STA (04:16)
[2023-01-01 07:40] LABS: INR 2.3 (<1.2); Prothrombin Time 22.9 sec (9.0-12.0)
[2023-01-01] MEDS: FUROSEMIDE 10 MG/ML 10 ML VIAL IV SCH ×2 (08:30→21:47)
[2023-01-01] MEDS: ASPIRIN 81 MG PO SCH (08:31)
[2023-01-01] MEDS: METOPROLOL TARTRATE 50 MG TAB PO SCH ×2 (08:31→21:46)
[2023-01-01 08:49] LABS: African American GFR (CKD) >90 (>60 ml/min/1.73 sqM); Anion Gap 9 mmol/L; Blood Urea Nitrogen 25 mg/dL (9-20); Calcium 9.1 mg/dL (8.4-10.2); Carbon Dioxide 30 mmol/L (22-30); Chloride 100 mmol/L (98-107); Glucose 120 mg/dL (74-99); Non-African American GFR(CKD) 85 (>60 ml/min/1.73 sqM); Sodium 139 mmol/L (137-145)
[2023-01-01 09:05] LABS: C Reactive Protein 3.2 mg/dL (<1.0)
[2023-01-01 11:55] VITALS: BMI 44.2
--- NOTE | 2023-01-01 12:11 | P.PN ---
Subjective Progress Note Date: 01/01/23 Patient is a 72-year-old male with a PMH of A. fib on Coumadin, chronic lower extremity edema (unknown cause as per patient) on Lasix, prostate cancer status post prostatectomy who presents to the emergency room with complaints of lower extremity swelling and redness, with shortness of breath. Patient reports gradually worsening lower extremity edema over the past 1 year despite compliance with oral Lasix. Denies ever being diagnosed with congestive heart failure. Also reports having an abrasion on the right anterior leg multiple times from a chair he was using over the past 2 weeks resulting in painful redness and swelling of the right leg. Denies chest discomfort, shortness of breath, cough, fever, chills, nausea, vomiting, diaphoresis, or dizziness. Reports ambulating without assistive devices at home but occasionally using a cane outside. In the emergency room, chest x-ray revealed bronchial wall thickening with mild interstitial prominence, concerning for pneumonitis. EKG revealed A. fib with RVR at 100 bpm with an incomplete right bundle branch block with T-wave inversion in lead V3. Laboratory evaluation was remarkable for troponin less than 0.012, proBNP 593, glucose 129, lactic acid 1.6, and potassium 5.2 (hemolyzed), and INR 2.5. 12/31 Patient was seen and examined. Continues to report RLE > LLE swelling and redness. Otherwise no complaints. CBC unremarkable. INR 2.2. BMP BUN 24, glucose 124. 01/01 Patient was seen and examined. Improved redness and swelling of the BL LE. Echo done shows EF 40-45% with mild LVH and large apical hypokinesis. Patient denies any history of AK or CHF. Cardiology consulted. INR 2.3. BMP shows BUN 24, glucose 120. CRP 3.2. General: non toxic, no distress, appears at stated age, morbidly obese Derm: warm, bilateral lower extremity venous stasis changes with right lower extremity anterior erythema and warmth with tenderness and oozing Head: atraumatic, normocephalic, symmetric Eyes: EOMI, no lid lag, anicteric sclera ENT: Nose and ears atraumatic Neck: No cervical lymphadenopathy, trachea midline, supple Cardiovascular: Irregularly irregular, no murmur, positive dorsalis pedis pulse bilateral, 2+ bilateral lower extremity pitting edema Lungs: CTA bilateral, no rhonchi, no rales, no accessory muscle use Ext: muscle strength 5 out of 5 in all 4 extremities grossly, no gross muscle atrophy, no contractures, Neuro: no gross focal neuro deficits Psych: Alert, oriented, appropriate affect Right lower extremity cellulitis Bilateral lower extremity edema, rule out congestive heart failure (borderline proBNP) A. fib, on Coumadin (therapeutic INR) Based on my assessment of this patient, this patient meets a high complexity level of care. Patient has an acute diagnosis of RLE cellulitis and bilateral pitting edema t hat poses a threat to life or bodily function. Right lower extremity cellulitis: Rocephin 2g IV QD. Follow BCx. Obtain ESR and CRP. Bilateral lower extremity edema, rule out congestive heart failure (borderline proBNP): Lasix 40 mg IV BID. Awaiting echocardiogram. A. fib, on Coumadin (therapeutic INR) I have reviewed the following cruise consultant notes: I have reviewed the results of the following tests: Coag panel, Echo, BMP, CRP I have ordered the following tests: BMP I have discussed the care of this patient with the following independent historian: I have independently interpreted the following test below: I have discussed the management of this patient with the following physician: This patient has a high risk of morbidity due to the following reasons: Lasix IV - intensive monitoring - renal function Objective - Vital Signs Vital signs: Vital Signs Temp 98.3 F 01/01/23 07:48 Pulse 78 01/01/23 07:48 Resp 19 01/01/23 07:48 BP 118/78 01/01/23 07:48 Pulse Ox 93 L 01/01/23 07:48 FiO2 Intake & Output 12/31/22 01/01/23 01/01/23 18:59 06:59 18:59 Intake Total 100 Output Total 320 1800 1100 Balance -320 -1700 -1100 Weight 140 kg 140 kg Intake: Oral 100 Output: Urine 320 1800 1100 Other: Voiding Method External Catheter External Catheter # Voids 1 0 - Labs CBC & Chem 7: 12/31/22 07:08 01/01/23 06:42 Labs: Abnormal Lab Results - Last 24 Hours (Table) 01/01/23 01/01/23 Range/Units 06:42 06:42 PT 22.9 H (9.0-12.0) sec INR 2.3 H (<1.2) BUN 25 H (9-20) mg/dL Glucose 120 H (74-99) mg/dL C-Reactive Protein 3.2 H (<1.0) mg/dL Microbiology - Last 24 Hours (Table) 12/30/22 13:40 Blood Culture - Preliminary Blood 12/30/22 13:25 Blood Culture - Preliminary Blood
--- NOTE | 2023-01-01 16:06 | CDI ---
Documentation Clarification Form Date: 01/01/2023 03:56:31 PM From: Astrid Razo RN, CCDS Email: [email or web address] Admit Date: 12/30/2022 05:36:00 PM Patient Name: Parveen Corcoran Visit Number: [id number] Discharge Date: ATTENTION: The Clinical Documentation Specialists (CDI) and [facility] Coding Staff appreciate your assistance in clarifying documentation. Please respond to the clarification below the line at the bottom and electronically sign. The CDI & [facility] Coding staff will review the response and follow-up if needed. Please note: Queries are made part of the Legal Health Record. If you have any questions, please contact the author of this message via ITS. Dr. Ashleigh Leos Cellulitis is documented in the progress notes. Additional clarification regarding the type of cellulitis is requested. History/risk factors: Diabetes, A fib, LE edema, prostate Ca. Presented with LE swelling and redness with SOB. Admitted with cellulitis and being worked up for CHF. Clinical Indicators: H&P: "warm, bilateral lower extremity venous stasis changes with right lower extremity anterior erythema and warmth with tenderness and oozing." 01/01 IM: "Improved redness and swelling of the BL LE. Echo done shows EF 40-45% with mild LVH and large apical hypokinesis." 12/30-01/01 Glucose 129-124-120 Treatment: IV Rocephin 2gm x1 on 12/30 then 2gm Q24H; Lasix 40mg IV Q12H 12/30 then 60mg IV 12/31-present Please clarify the etiology of the cellulitis, if known: [ x ] Cellulitis is a diabetic skin complication [ ] Cellulitis is not a diabetic skin complication [ ] Other, please specify: [ ] Unable to determine MTDD
[2023-01-01] MEDS: WARFARIN 5 MG TAB PO SCH (21:45)
[2023-01-01] MEDS: LATANOPROST 0.005% OPHTH DROPS 2.5 ML BTL BOTH EYES SCH (21:46)
[2023-01-01] MEDS: WARFARIN 2 MG TAB PO SCH (21:46)
[2023-01-02 07:21] LABS: INR 2.4 (<1.2)
[2023-01-02] MEDS: ASPIRIN 81 MG PO SCH (08:34)
[2023-01-02] MEDS: METOPROLOL TARTRATE 50 MG TAB PO SCH ×2 (08:34→20:56)
[2023-01-02] MEDS: FUROSEMIDE 10 MG/ML 10 ML VIAL IV SCH (11:37)
--- NOTE | 2023-01-02 12:56 | P.PN ---
Subjective Progress Note Date: 01/02/23 Patient is a 72-year-old male with a PMH of A. fib on Coumadin, chronic lower extremity edema (unknown cause as per patient) on Lasix, prostate cancer status post prostatectomy who presents to the emergency room with complaints of lower extremity swelling and redness, with shortness of breath. Patient reports gradually worsening lower extremity edema over the past 1 year despite compliance with oral Lasix. Denies ever being diagnosed with congestive heart failure. Also reports having an abrasion on the right anterior leg multiple times from a chair he was using over the past 2 weeks resulting in painful redness and swelling of the right leg. Denies chest discomfort, shortness of breath, cough, fever, chills, nausea, vomiting, diaphoresis, or dizziness. Reports ambulating without assistive devices at home but occasionally using a cane outside. In the emergency room, chest x-ray revealed bronchial wall thickening with mild interstitial prominence, concerning for pneumonitis. EKG revealed A. fib with RVR at 100 bpm with an incomplete right bundle branch block with T-wave inversion in lead V3. Laboratory evaluation was remarkable for troponin less than 0.012, proBNP 593, glucose 129, lactic acid 1.6, and potassium 5.2 (hemolyzed), and INR 2.5. 12/31 Patient was seen and examined. Continues to report RLE > LLE swelling and redness. Otherwise no complaints. CBC unremarkable. INR 2.2. BMP BUN 24, glucose 124. 01/01 Patient was seen and examined. Improved redness and swelling of the BL LE. Echo done shows EF 40-45% with mild LVH and large apical hypokinesis. Patient denies any history of [place] or CHF. Cardiology consulted. INR 2.3. BMP shows BUN 24, glucose 120. CRP 3.2. 01/02 Patient was seen and examined. Improved swelling. INR 2.4. Awaiting cardiology consultation. CRP 3.2. ESR 64. General: non toxic, no distress, appears at stated age, morbidly obese Derm: warm, bilateral lower extremity venous stasis changes with right lower extremity anterior erythema and warmth with tenderness and oozing Head: atraumatic, normocephalic, symmetric Eyes: EOMI, no lid lag, anicteric sclera ENT: Nose and ears atraumatic Neck: No cervical lymphadenopathy, trachea midline, supple Cardiovascular: Irregularly irregular, no murmur, positive dorsalis pedis pulse bilateral, 2+ bilateral lower extremity pitting edema Lungs: CTA bilateral, no rhonchi, no rales, no accessory muscle use Ext: muscle strength 5 out of 5 in all 4 extremities grossly, no gross muscle atrophy, no contractures, Neuro: no gross focal neuro deficits Psych: Alert, oriented, appropriate affect Right lower extremity cellulitis Bilateral lower extremity edema HFrEF with apical hypokinesis A. fib, on Coumadin (therapeutic INR) Based on my assessment of this patient, this patient meets a high complexity l evel of care. Patient has an acute diagnosis of RLE cellulitis and bilateral pitting edema that poses a threat to life or bodily function. Right lower extremity cellulitis: Rocephin 2g IV QD. Follow BCx. Obtain ESR and CRP. Bilateral lower extremity edema: Lasix 40 mg IV BID. Echocardiogram as above. HFrEF with apical hypokinesis: Continue Metoprolol and Lasix. Would benefit from ACEi. He reports never undergoing ischemic workup. Awaiting Cardiology recommendations. A. fib, on Coumadin (therapeutic INR) I have reviewed the following call center consultant notes: I have reviewed the results of the following tests: Coag panel, ESR, CRP I have ordered the following tests: BMP I have discussed the care of this patient with the following independent historian: I have independently interpreted the following test below: I have discussed the management of this patient with the following physician: This patient has a high risk of morbidity due to the following reasons: Lasix IV - intensive monitoring - renal function Objective - Vital Signs Vital signs: Vital Signs Temp 97.9 F 01/02/23 06:55 Pulse 69 01/02/23 06:55 Resp 17 01/02/23 06:55 BP 129/69 01/02/23 06:55 Pulse Ox 95 01/02/23 06:55 FiO2 Intake & Output 01/01/23 01/02/23 01/02/23 18:59 06:59 18:59 Output Total 2600 700 200 Balance -2600 -700 -200 Weight 140 kg 137.8 kg Output: Urine 2600 700 200 Other: Voiding Method External Catheter External Catheter # Voids 2 # Bowel Movements 2 - Labs CBC & Chem 7: 12/31/22 07:08 01/01/23 06:42 Labs: Abnormal Lab Results - Last 24 Hours (Table) 01/02/23 Range/Units 06:49 PT 24.0 H (10.0-12.5) sec INR 2.4 H (<1.2) Microbiology - Last 24 Hours (Table) 12/30/22 13:40 Blood Culture - Preliminary Blood 12/30/22 13:25 Blood Culture - Preliminary Blood
[2023-01-02] MEDS ORDERED: lisinopriL 5 MG TAB PO SCH (16:15)
--- NOTE | 2023-01-02 16:25 | P.CRDCN ---
History of Present Illness Consult date: 01/02/23 History of present illness: HISTORY OF PRESENTING ILLNESS 82-year-old male with past medical history of atrial fibrillation on warfarin therapy, chronic lower extremity edema, status post prostatectomy for prostate cancer. This time he presented to the hospital because of worsening lower extremity edema with weeping ulcers in bilateral lower extremity. Cardiology was consulted to evaluate for congestive heart failure Hemoglobin 13.9, creatinine 0.89, potassium 4.0, troponin was negative, BNP was elevated at 590 ECG showed atrial fibrillation with no significant ST-T wave changes. Rate controlled. Telemetry shows persistent atrial fibrillation REVIEW OF SYSTEMS 14 point review of system is negative except what is mentioned above in HPI. PHYSICAL EXAMINATION Vital signs reviewed. Head: Normocephalic. Eyes: Sclerae nonicteric. Neck: Brisk carotid upstroke, elevated JVD Lungs: Crackles in bilateral lung bravo. Heart: Irregular pulses and no murmurs. Abdomen: Soft nontender, positive bowel sounds no organomegaly. Extremities: 2+ pitting edema in bilateral LE. Awake alert and oriented, normal mood and affect ASSESSMENT Acute HFrEF exacerbation. HFrEF with EF 40%, likely ischemic cardiomyopathy with apical wall motion abnormality Persistent atrial fibrillation on warfarin Obesity PLAN Increase metoprolol to 100 mg twice a day Add Entresto 24/26 mg twice a day. Change diuretic to Bumex 1 mg BID. Start Farxiga 10 mg daily Continue atorvastatin 40 mg daily Monitor renal function and creatinine levels event monitor H Monitor urine output Patient will need ischemic evaluation with a heart catheterization prior to di possibly on Wednesday. Patient is on warfarin therapy. He has never been tried on Eliquis or Xarelto. Patient is agreeable to start Eliquis but is concerned about insurance coverage. I will discontinue his warfarin in anticipation of possible ischemic evaluation. He has never had any strokes before. His [id number] score is 3 and therefore he will not need any bridging. Monitor INR tomorrow Past Medical History Past Medical History: Atrial Fibrillation, Cancer, COPD, Eye Disorder, Hypertension, Osteoarthritis (OA) Additional Past Medical History / Comment(s): PROSTATE CA, GLAUCOMA, STATES SCARS ON LUNGS FROM PREVIOUS SX, Borderline diabetes, does not take insulin History of Any Multi-Drug Resistant Organisms: None Reported Past Surgical History: Cardiac Ablation, Heart Catheterization, Joint Replacement, Orthopedic Surgery, Prostate Surgery Additional Past Surgical History / Comment(s): RT HIP TUMOR REMOVED, HAS HAD "2 OUTSIDE, AND 2 INSIDE CARDIAC ABLATIONS", RT TKA x2 Past Anesthesia/Blood Transfusion Reactions: Previous Problems w/ Anesthesia, Postoperative Nausea & Vomiting (PONV) Additional Past Anesthesia/Blood Transfusion Reaction / Comment(s): STATES HAD NUMBNESS TO BUTTOCKS FOR 3 WEEKS POST SPINAL ANESTHESIA FOR PROSTATECTOMY Past Psychological History: No Psychological Hx Reported Smoking Status: Former smoker Past Alcohol Use History: Occasional Additional Past Alcohol Use History / Comment(s): QUIT SMOKING 1993 Past Drug Use History: Marijuana Additional Drug Use History / Comment(s): occasional -SMOKES MARIJUANA ABOUT EVERY 3 DAYS. INSTRUCTED TO REFRAIN FROM USE FOR AT LEAST 24 HOURS PRIOR TO PROCEDURE - Past Family History Father Family Medical History: Cancer Additional Family Medical History / Comment(s): PROSTATE Medications and Allergies Home Medications Medication Instructions Recorded Confirmed Type Metoprolol Tartrate [Lopressor] 100 mg PO DAILY 08/18/13 12/30/22 History Aspirin EC [Ecotrin Low Dose] 81 mg PO DAILY 12/30/22 12/30/22 History Cholecalciferol [Vitamin D3 (25 50 mcg PO DAILY 12/30/22 12/30/22 History Mcg = 1000 Iu)] Furosemide [Lasix] 40 mg PO BID@0500,1130 12/30/22 12/30/22 History Latanoprost [Latanoprost 0.005%] 1 drop BOTH EYES HS 12/30/22 12/30/22 History Metoprolol Tartrate [Lopressor] 50 mg PO HS 12/30/22 12/30/22 History Warfarin [Coumadin] 7 mg PO HS 12/30/22 12/30/22 History Zinc Gluconate [Zinc] 50 mg PO DAILY 12/30/22 12/30/22 History Allergies Allergy/AdvReac Type Severity Reaction Status Date / Time latex Allergy Swelling Verified 12/30/22 16:32 at contact potassium chloride AdvReac Nausea & Verified 12/30/22 16:32 Vomiting & Diarrhea VINYL TAPE AdvReac TOOK OFF Uncoded 12/30/22 16:32 SKIN Physical Exam Vitals: Vital Signs Temp Pulse Pulse Resp BP Pulse Ox 01/02/23 13:35 97.6 F 76 19 105/72 96 01/02/23 06:55 97.9 F 69 17 129/69 95 01/02/23 01:28 97.7 F 122 H 18 119/65 93 L 01/01/23 18:55 98.2 F 74 18 127/61 94 L Intake and Output 01/02/23 01/02/23 01/02/23 06:59 14:59 22:59 Output Total 700 200 Balance -700 -200 Output: Urine 700 200 Other: # Voids 2 Results 12/31/22 07:08 01/01/23 06:42 Coagulation 01/02/23 Range/Units 06:49 PT 24.0 H (10.0-12.5) sec Current Medications Generic Name Dose Route Start Last Admin Trade Name Freq PRN Reason Stop Dose Admin Aspirin 81 mg 12/31/22 09:00 01/02/23 08:34 Aspirin 81 Mg PO 81 mg DAILY [facility]IRA Administration Bumetanide 1 mg 01/03/23 09:00 Bumetanide 1 Mg Tab PO BID@0900,1600 [facility]A Dapagliflozin 10 mg 01/02/23 16:15 Dapagliflozin Propanediol 10 Mg Tablet PO DAILY [facility] Ceftriaxone Sodium 2 gm/ 50 mls @ 100 mls/hr 12/31/22 09:00 01/02/23 08:34 Sodium Chloride IVPB 100 mls/hr Q24HR MO[facility]A Administration Protocol Latanoprost 1 drops 12/31/22 21:00 01/01/23 21:46 Latanoprost 0.005% Ophth Drops 2.5 Ml Btl BOTH EYES 1 drops HS MOIRA Administration Metoprolol Tartrate 100 mg 01/02/23 21:00 Metoprolol Tartrate 50 Mg Tab PO BID [facility] Miscellaneous Information 1 each 12/31/22 00:34 Warfarin Per Pharmacy MISCELLANE DIRECTED PRN Per Protocol Protocol Sacubitril/Valsartan 1 each 01/02/23 21:00 Sacubitril/Valsartan 24 Mg-26 Mg Tablet PO BID MOIRA Warfarin Sodium 5 mg 12/31/22 01:00 01/01/23 21:45 Warfarin 5 Mg Tab PO 5 mg HS MOIRA Administration Warfarin Sodium 2 mg 12/31/22 01:00 01/01/23 21:46 Warfarin 2 Mg Tab PO 2 mg HS [facility]A Administration Intake and Output 01/02/23 01/02/23 01/02/23 06:59 14:59 22:59 Output Total 700 200 Balance -700 -200 Output: Urine 700 200 Other: # Voids 2 12/31/22 07:08 01/01/23 06:42
[2023-01-02] MEDS: DAPAGLIFLOZIN PROPANEDIOL 10 MG TABLET PO SCH (17:21)
[2023-01-02] MEDS: LATANOPROST 0.005% OPHTH DROPS 2.5 ML BTL BOTH EYES SCH (20:56)
[2023-01-02] MEDS: SACUBITRIL/VALSARTAN 24 MG-26 MG TABLET PO SCH (20:56)
[2023-01-02] MEDS: ATORVASTATIN 40 MG TAB PO SCH (20:56)
[2023-01-03 06:30] LABS: INR 2.4 (<1.2); Prothrombin Time 23.7 sec (10.0-12.5)
[2023-01-03 09:43] LABS: African American GFR (CKD) >90 (>60 ml/min/1.73 sqM); Anion Gap 10 mmol/L; Blood Urea Nitrogen 27 mg/dL (9-20); Carbon Dioxide 28 mmol/L (22-30); Chloride 100 mmol/L (98-107); Glucose 116 mg/dL (74-99); Non-African American GFR(CKD) 82 (>60 ml/min/1.73 sqM); Potassium 4.1 mmol/L (3.5-5.1); Sodium 138 mmol/L (137-145)
[2023-01-03] MEDS: SACUBITRIL/VALSARTAN 24 MG-26 MG TABLET PO SCH ×2 (10:00→22:25)
[2023-01-03] MEDS: METOPROLOL TARTRATE 50 MG TAB PO SCH ×2 (10:00→22:25)
[2023-01-03] MEDS: ASPIRIN 81 MG PO SCH (10:00)
[2023-01-03] MEDS: DAPAGLIFLOZIN PROPANEDIOL 10 MG TABLET PO SCH (10:01)
[2023-01-03] MEDS: BUMETANIDE 1 MG TAB PO SCH ×2 (10:01→15:53)
--- NOTE | 2023-01-03 11:23 | P.PN ---
Subjective Progress Note Date: 01/03/23 Patient is a 72-year-old male with a PMH of A. fib on Coumadin, chronic lower extremity edema (unknown cause as per patient) on Lasix, prostate cancer status post prostatectomy who presents to the emergency room with complaints of lower extremity swelling and redness, with shortness of breath. Patient reports gradually worsening lower extremity edema over the past 1 year despite compliance with oral Lasix. Denies ever being diagnosed with congestive heart failure. Also reports having an abrasion on the right anterior leg multiple times from a chair he was using over the past 2 weeks resulting in painful redness and swelling of the right leg. Denies chest discomfort, shortness of breath, cough, fever, chills, nausea, vomiting, diaphoresis, or dizziness. Reports ambulating without assistive devices at home but occasionally using a cane outside. In the emergency room, chest x-ray revealed bronchial wall thickening with mild interstitial prominence, concerning for pneumonitis. EKG revealed A. fib with RVR at 100 bpm with an incomplete right bundle branch block with T-wave inversion in lead V3. Laboratory evaluation was remarkable for troponin less than 0.012, proBNP 593, glucose 129, lactic acid 1.6, and potassium 5.2 (hemolyzed), and INR 2.5. 12/31 Patient was seen and examined. Continues to report RLE > LLE swelling and redness. Otherwise no complaints. CBC unremarkable. INR 2.2. BMP BUN 24, glucose 124. 01/01 Patient was seen and examined. Improved redness and swelling of the BL LE. Echo done shows EF 40-45% with mild LVH and large apical hypokinesis. Patient denies any history of [place] or CHF. Cardiology consulted. INR 2.3. BMP shows BUN 24, glucose 120. CRP 3.2. 01/02 Patient was seen and examined. Improved swelling. INR 2.4. Awaiting cardiology consultation. CRP 3.2. ESR 64. 01/03 Patient was seen and examined. Cardiology recommends increasing Metoprolol, start Entresto, start Farxiga, start Bumex, possibly heart cath on Wednesday. Blood culture neg at 72 hours. BMP shows BUN 27. Son updated on the plans. General: non toxic, no distress, appears at stated age, morbidly obese Derm: warm, bilateral lower extremity venous stasis changes with right lower extremity anterior erythema and warmth with tenderness and oozing Head: atraumatic, normocephalic, symmetric Eyes: EOMI, no lid lag, anicteric sclera ENT: Nose and ears atraumatic Neck: No cervical lymphadenopathy, trachea midline, supple Cardiovascular: Irregularly irregular, no murmur, positive dorsalis pedis pulse bilateral, 2+ bilateral lower extremity pitting edema Lungs: CTA bilateral, no rhonchi, no rales, no accessory muscle use Ext: muscle strength 5 out of 5 in all 4 extremities grossly, no gross muscle atrophy, no contractures, Neuro: no gross focal neuro deficits Psych: Alert, oriented, appropriate affect Right lower extremity cellulitis Acute HFrEF with apical hypokinesis A. fib, on Coumadin (therapeutic INR) Based on my assessment of this patient, this patient meets a moderate complexity level of care. Patient has an acute diagnosis of RLE cellulitis and bilateral pitting edema that poses a threat to life or bodily function. Right lower extremity cellulitis: Rocephin 2g IV QD. BCx neg so far. HFrEF with apical hypokinesis: Metoprolol increased 100 mg PO BID. Entresto 1 tab PO BID. Bumex 1 mg PO BID. Farxiga 10 mg PO QD. Possible heart cath on Wednesday. Cardiology on board. A. fib, on Coumadin: DC Coumadin in prep for possible heart cath on Wednesday. I have reviewed the following beauty consultant notes: Cardiology note. I have reviewed the results of the following tests: BCx. BMP. I have ordered the following tests: I have discussed the care of this patient with the following independent historian: I have independently interpreted the following test below: I have discussed the management of this patient with the following physician: Objective - Vital Signs Vital signs: Vital Signs Temp 97.7 F 01/03/23 01:06 Pulse 75 01/03/23 01:06 Resp 18 01/03/23 01:06 BP 96/50 01/03/23 01:06 Pulse Ox 95 01/03/23 01:06 FiO2 Intake & Output 01/02/23 01/03/23 01/03/23 18:59 06:59 18:59 Output Total 670 Balance -670 Output: Urine 670 Other: Voiding Method Toilet Urinal # Voids 1 2 - Labs CBC & Chem 7: 12/31/22 07:08 01/03/23 05:58 Labs: Abnormal Lab Results - Last 24 Hours (Table) 01/03/23 Range/Units 05:58 PT 23.7 H (10.0-12.5) sec INR 2.4 H (<1.2) Microbiology - Last 24 Hours (Table) 12/30/22 13:40 Blood Culture - Preliminary Blood 12/30/22 13:25 Blood Culture - Preliminary Blood
--- NOTE | 2023-01-03 15:08 | P.PN ---
Subjective Progress Note Date: 01/03/23 Progress note: Patient is doing well from cardiac vessel standpoint. He has tolerated the addition of guideline directed medical therapy. His blood pressure and kidney function has stayed stable. HISTORY OF PRESENTING ILLNESS 82-year-old male with past medical history of atrial fibrillation on warfarin therapy, chronic lower extremity edema, status post prostatectomy for prostate cancer. This time he presented to the hospital because of worsening lower extremity edema with weeping ulcers in bilateral lower extremity. Cardiology was consulted to evaluate for congestive heart failure Hemoglobin 13.9, creatinine 0.89, potassium 4.0, troponin was negative, BNP was elevated at 590 ECG showed atrial fibrillation with no significant ST-T wave changes. Rate controlled. Telemetry shows persistent atrial fibrillation REVIEW OF SYSTEMS 14 point review of system is negative except what is mentioned above in HPI. PHYSICAL EXAMINATION Vital signs reviewed. Head: Normocephalic. Eyes: Sclerae nonicteric. Neck: Brisk carotid upstroke, elevated JVD Lungs: Crackles in bilateral lung bravo. Heart: Irregular pulses and no murmurs. Abdomen: Soft nontender, positive bowel sounds no organomegaly. Extremities: 2+ pitting edema in bilateral LE. Awake alert and oriented, normal mood and affect ASSESSMENT Acute HFrEF exacerbation. HFrEF with EF 40%, likely ischemic cardiomyopathy with apical wall motion abnormality Persistent atrial fibrillation on warfarin Obesity PLAN Increase metoprolol to 100 mg twice a day Add Entresto 24/26 mg twice a day. Change diuretic to Bumex 1 mg BID. Start Farxiga 10 mg daily Continue atorvastatin 40 mg daily Monitor renal function and creatinine levels event monitor H Monitor urine output Patient will need ischemic evaluation with a heart catheterization prior to discharge possibly on Wednesday Patient is on warfarin therapy. He has never been tried on Eliquis or Xarelto. Patient is agreeable to start Eliquis but is concerned about insurance coverage. I will discontinue his warfarin in anticipation of possible ischemic evaluation. He has never had any strokes before. His [id number] score is 3 and therefore he will not need any bridging. Objective - Vital Signs Vital signs: Vital Signs Temp 97.6 F 01/03/23 12:50 Pulse 72 01/03/23 12:50 Resp 18 01/03/23 12:50 BP 138/59 01/03/23 12:50 Pulse Ox 95 01/03/23 12:50 FiO2 Intake & Output 01/02/23 01/03/23 01/03/23 18:59 06:59 18:59 Output Total 670 Balance -670 Output: Urine 670 Other: Voiding Method Toilet Urinal # Voids 1 2 - Labs CBC & Chem 7: 12/31/22 07:08 01/03/23 05:58 Labs: Abnormal Lab Results - Last 24 Hours (Table) 01/03/23 01/03/23 Range/Units 05:58 05:58 PT 23.7 H (10.0-12.5) sec INR 2.4 H (<1.2) BUN 27 H (9-20) mg/dL Glucose 116 H (74-99) mg/dL Microbiology - Last 24 Hours (Table) 12/30/22 13:40 Blood Culture - Preliminary Blood 12/30/22 13:25 Blood Culture - Preliminary Blood
[2023-01-03] MEDS: LATANOPROST 0.005% OPHTH DROPS 2.5 ML BTL BOTH EYES SCH (22:24)
[2023-01-03] MEDS: ATORVASTATIN 40 MG TAB PO SCH (22:25)
[2023-01-04 05:59] LABS: INR 1.8 (<1.2); Prothrombin Time 17.8 sec (10.0-12.5)
[2023-01-04] MEDS: METOPROLOL TARTRATE 50 MG TAB PO SCH ×2 (09:39→20:00)
[2023-01-04] MEDS: DAPAGLIFLOZIN PROPANEDIOL 10 MG TABLET PO SCH (09:39)
[2023-01-04] MEDS: BUMETANIDE 1 MG TAB PO SCH ×2 (09:39→16:53)
[2023-01-04] MEDS: SACUBITRIL/VALSARTAN 24 MG-26 MG TABLET PO SCH ×2 (09:39→20:00)
[2023-01-04] MEDS: ASPIRIN 81 MG PO SCH (09:39)
--- NOTE | 2023-01-04 12:06 | P.PN ---
Subjective Progress Note Date: 01/04/23 Patient is a 72-year-old male with a PMH of A. fib on Coumadin, chronic lower extremity edema (unknown cause as per patient) on Lasix, prostate cancer status post prostatectomy who presents to the emergency room with complaints of lower extremity swelling and redness, with shortness of breath. Patient reports gradually worsening lower extremity edema over the past 1 year despite compliance with oral Lasix. Denies ever being diagnosed with congestive heart failure. Also reports having an abrasion on the right anterior leg multiple times from a chair he was using over the past 2 weeks resulting in painful redness and swelling of the right leg. Denies chest discomfort, shortness of breath, cough, fever, chills, nausea, vomiting, diaphoresis, or dizziness. Reports ambulating without assistive devices at home but occasionally using a cane outside. In the emergency room, chest x-ray revealed bronchial wall thickening with mild interstitial prominence, concerning for pneumonitis. EKG revealed A. fib with RVR at 100 bpm with an incomplete right bundle branch block with T-wave inversion in lead V3. Laboratory evaluation was remarkable for troponin less than 0.012, proBNP 593, glucose 129, lactic acid 1.6, and potassium 5.2 (hemolyzed), and INR 2.5. 12/31 Continues to report RLE > LLE swelling and redness. Otherwise no complaints. Continued on Lasix IV and Rocephin. 01/01 Improved redness and swelling of the BL LE. Echo done shows EF 40-45% with mild LVH and large apical hypokinesis. Patient denies any history of [place] or CHF. Cardiology consulted. 01/02 Improved swelling. Awaiting cardiology consultation. 01/03 Cardiology recommends increasing Metoprolol, start Entresto, start F arxiga, start Bumex, DC lasix, possibly heart cath on Wednesday. Son updated on the plans. 01/04 Patient was seen and examined. He reports slightly worsened swelling in his lower extremities. Working with PT and OT. He has completed 5 days of Rocephin for treatment of cellulitis, will switch to Keflex for 2 days to complete a total of 7 days. Awaiting cardiology recommendations for when cardiac cath should be done. Anticipate discharge after cardiac clearance. General: non toxic, no distress, appears at stated age, morbidly obese Derm: warm, bilateral lower extremity venous stasis changes with right lower extremity anterior erythema and warmth with tenderness and oozing Head: atraumatic, normocephalic, symmetric Eyes: EOMI, no lid lag, anicteric sclera ENT: Nose and ears atraumatic Neck: No cervical lymphadenopathy, trachea midline, supple Cardiovascular: Irregularly irregular, no murmur, 2+ bilateral lower extremity pitting edema Lungs: CTA bilateral, no rhonchi, no rales, no accessory muscle use Ext: muscle strength 5 out of 5 in all 4 extremities grossly, no gross muscle atrophy, no contractures, Neuro: no gross focal neuro deficits Psych: Alert, oriented, appropriate affect Right lower extremity cellulitis Acute HFrEF with apical hypokinesis A. fib, on Coumadin (therapeutic INR) Based on my assessment of this patient, this patient meets a moderate complexity level of care. Patient has an acute diagnosis of RLE cellulitis and bilateral pitting edema that poses a threat to life or bodily function. Right lower extremity cellulitis: Rocephin switched to Keflex (2 more days to complete total 7 days Abx). BCx neg so far. HFrEF with apical hypokinesis: Metoprolol increased 100 mg PO BID. Entresto 1 tab PO BID. Bumex 1 mg PO BID. Farxiga 10 mg PO QD. Possible heart cath on Wednesday. Cardiology on board. A. fib, on Coumadin: DC Coumadin in prep for possible heart cath on Wednesday. I have reviewed the following application development consultant notes: Cardiology note. I have reviewed the results of the following tests: Coag panel. I have ordered the following tests: I have discussed the care of this patient with the following independent historian: I have independently interpreted the following test below: I have discussed the management of this patient with the following physician: Objective - Vital Signs Vital signs: Vital Signs Temp 97.8 F 01/04/23 07:25 Pulse 62 01/04/23 07:25 Resp 18 01/04/23 07:25 BP 100/68 01/04/23 07:25 Pulse Ox 94 L 01/04/23 07:25 FiO2 Intake & Output 01/03/23 01/04/23 01/04/23 18:59 06:59 18:59 Output Total 1300 Balance -1300 Output: Urine 1300 Other: # Voids 1 2 - Labs CBC & Chem 7: 12/31/22 07:08 01/03/23 05:58 Labs: Abnormal Lab Results - Last 24 Hours (Table) 01/04/23 Range/Units 05:12 PT 17.8 H (10.0-12.5) sec INR 1.8 H (<1.2)
[2023-01-04] MEDS ORDERED: ALPRAZolam 0.5 MG TAB PO PRN (17:51)
[2023-01-04] MEDS ORDERED: ALPRAZolam 0.25 MG TAB PO PRN (17:51)
[2023-01-04] MEDS ORDERED: NITROGLYCERIN SL TABS 0.4 MG TAB SUBLINGUAL PRN (17:51)
--- NOTE | 2023-01-04 17:51 | P.PN ---
Progress Note - Text Patient is sitting in a chair No shortness of breath at rest He says with minimal exertion he gets quite short of breath On examination no JVD Mild bilateral lower extremity edema Central obesity No hepatojugular reflux Heart sounds are normal, irregular Clear lungs no rhonchi no crackles now Blood pressure 101/62 mmHg 98/55 mmHg Pulse rate in the 90s, irregular Twelve-lead EKG shows atrial fibrillation Currently on metoprolol 100 mg twice daily and on entresto Electrolytes are normal BUN/creatinine normal Impression Cardiomyopathy Congestive heart failure, systolic, acute on chronic Persistent atrial fibrillation Plan Discussed with Dr. Reeves Proceed with coronary angiography on Wednesday
[2023-01-04] MEDS: CEPHALEXIN 500 MG CAP PO SCH (20:00)
[2023-01-04] MEDS: LATANOPROST 0.005% OPHTH DROPS 2.5 ML BTL BOTH EYES SCH (20:00)
[2023-01-04] MEDS: ATORVASTATIN 40 MG TAB PO SCH (20:00)
[2023-01-05] MEDS: BUMETANIDE 1 MG TAB PO SCH ×2 (07:41→17:13)
[2023-01-05] MEDS: CEPHALEXIN 500 MG CAP PO SCH ×2 (07:41→20:33)
[2023-01-05] MEDS: DAPAGLIFLOZIN PROPANEDIOL 10 MG TABLET PO SCH (07:42)
[2023-01-05] MEDS: ASPIRIN 81 MG PO SCH (07:42)
[2023-01-05] MEDS: METOPROLOL TARTRATE 50 MG TAB PO SCH ×2 (07:43→20:33)
[2023-01-05] MEDS: SACUBITRIL/VALSARTAN 24 MG-26 MG TABLET PO SCH ×2 (07:43→20:33)
--- NOTE | 2023-01-05 13:06 | P.PN ---
Subjective Progress Note Date: 01/05/23 Pt has no complaints today. Reports improvement in dyspnea. Gen: awake, alert HEENT: normocephalic, atraumatic, good hearing acuity, moist mucous membranes Resp: good air exchange, breathing comfortably with no accessory muscle use CVS: good distal perfusion x 4, GI: soft, NTTP, ND : no SPT, no CVAT, morrell catheter not present MSK: bilateral pitting edema, no clubbing Neuro: non-focal, moving all extremities Psych: cooperative, euthymic mood Hospital Course: Patient is a 72-year-old male with a PMH of A. fib on Coumadin, chronic lower extremity edema (unknown cause as per patient) on Lasix, prostate cancer status post prostatectomy who presents to the emergency room with complaints of lower extremity swelling and redness, with shortness of breath. Patient reports gradually worsening lower extremity edema over the past 1 year despite compliance with oral Lasix. Denies ever being diagnosed with congestive heart failure. Also reports having an abrasion on the right anterior leg multiple times from a chair he was using over the past 2 weeks resulting in painful redness and swelling of the right leg. Denies chest discomfort, shortness of breath, cough, fever, chills, nausea, vomiting, diaphoresis, or dizziness. Reports ambulating without assistive devices at home but occasionally using a cane outside. In the emergency room, chest x-ray revealed bronchial wall thickening with mild interstitial prominence, concerning for pneumonitis. EKG revealed A. fib with RVR at 100 bpm with an incomplete right bundle branch block with T-wave inversion in lead V3. Laboratory evaluation was remarkable for troponin less than 0.012, proBNP 593, glucose 129, lactic acid 1.6, and potassium 5.2 (hemolyzed), and INR 2.5. 12/31 Continues to report RLE > LLE swelling and redness. Otherwise no complaints. Continued on Lasix IV and Rocephin. 01/01 Improved redness and swelling of the BL LE. Echo done shows EF 40-45% with mild LVH and large apical hypokinesis. Patient denies any history of [place] or CHF. Cardiology consulted. 01/02 Improved swelling. Awaiting cardiology consultation. 01/03 Cardiology recommends increasing Metoprolol, start Entresto, start Farxiga, start Bumex, DC lasix, possibly heart cath on Wednesday. Son updated on the plans. 01/04 Patient was seen and examined. He reports slightly worsened swelling in his lower extremities. Working with PT and OT. He has completed 5 days of Rocephin for treatment of cellulitis, will switch to Keflex for 2 days to complete a total of 7 days. Awaiting cardiology recommendations for when cardiac cath should be done. Anticipate discharge after cardiac clearance. 01/05 Discussed with cardiology, patient will undergo LHC tomorrow AM. Assessment/Plan: Right lower extremity cellulitis - patient is on keflex, plan for completion of abx course tomorrow 01/06 Acute HFrEF with apical hypokinesis A. fib, on Coumadin (therapeutic INR) - continue bumex - appreciate cardiology recs - plan for LHC tomorrow AM - holding coumadin - metoprolol 100mg BID Pt is full code DVT PPx with heparin gtt, with plan to transition back to coumadin after LHC Objective - Vital Signs Vital signs: Vital Signs Temp 97.8 F 01/05/23 07:29 Pulse 72 01/05/23 07:29 Resp 19 01/05/23 07:29 BP 126/70 01/05/23 07:29 Pulse Ox 99 01/05/23 07:29 FiO2 Intake & Output 01/04/23 01/05/23 01/05/23 18:59 06:59 18:59 Output Total 1550 Balance -1550 Output: Urine 1550 Other: # Voids 2 2 - Labs CBC & Chem 7: 12/31/22 07:08 01/03/23 05:58 Labs: Microbiology - Last 24 Hours (Table) 12/30/22 13:40 Blood Culture - Final Blood 12/30/22 13:25 Blood Culture - Final Blood
[2023-01-05] MEDS: LATANOPROST 0.005% OPHTH DROPS 2.5 ML BTL BOTH EYES SCH (20:33)
[2023-01-05] MEDS: ATORVASTATIN 40 MG TAB PO SCH (21:41)
[2023-01-06] MEDS: BUMETANIDE 1 MG TAB PO SCH ×2 (02:42→18:41)
[2023-01-06] MEDS ORDERED: ASPIRIN 325 MG TAB PO ONE (07:00)
[2023-01-06] MEDS ORDERED: HEPARIN SODIUM,PORCINE 10,000 UNIT in SODIUM CHLORIDE 0.9% 1,000 ML IRRIGATION PRN (07:00)
[2023-01-06] MEDS ORDERED: HEPARIN SODIUM,PORCINE (1 ML) 2,500 UNIT in SODIUM CHLORIDE 0.9% 250 ML IRRIGATION PRN (07:00)
[2023-01-06] MEDS ORDERED: ATORVASTATIN 80 MG TAB PO ONE (07:00)
[2023-01-06] MEDS: CEPHALEXIN 500 MG CAP PO SCH (09:00)
[2023-01-06] MEDS: METOPROLOL TARTRATE 50 MG TAB PO SCH ×2 (09:01→18:41)
[2023-01-06] MEDS: SACUBITRIL/VALSARTAN 24 MG-26 MG TABLET PO SCH ×2 (09:01→18:41)
[2023-01-06] MEDS: DAPAGLIFLOZIN PROPANEDIOL 10 MG TABLET PO SCH (09:24)
[2023-01-06] MEDS ORDERED: IV FLUID CONTINUATION 1,000 ML IV ONE (12:00)
[2023-01-06] MEDS ORDERED: MIDAZOLAM 2 MG/2 ML VIAL IVP ONE (12:24)
[2023-01-06] MEDS ORDERED: fentaNYL (PF) 50 MCG/ML 2 ML AMP IVP ONE (12:24)
[2023-01-06] MEDS ORDERED: LIDOCAINE 1% INJ 10MG/ML (20 ML MDV) SQ ONE (12:27)
[2023-01-06] MEDS ORDERED: VERAPAMIL SYRINGE (5 MG/10 ML) INTRAARTER ONE (12:34)
[2023-01-06] MEDS ORDERED: HEPARIN SODIUM 1,000 UN/ML (10ML VL) IV ONE (12:41)
[2023-01-06] MEDS ORDERED: IOPAMIDOL-370 100ML BTL INJ ONE (12:54)
--- NOTE | 2023-01-06 13:10 | P.CARDCATH ---
Date of Procedure: 01/06/23 Description of Procedure: DIAGNOSTIC CORONARY ANGIOGRAPHY and LEFT HEART CATH REPORT PROCEDURES PERFORMED: Left heart catheterization Selective coronary angiography Moderate conscious sedation 27 mins Ultrasound assisted Right radial access INDICATION: New-onset cardiomyopathy, CHF exacerbation 72-year-old presented to the hospital with worsening shortness of breath, increased edema in bilateral lower wheeping skin ulcers. He had an echo cardiogram which showed an EF of 40% with anteroapical hypokinesia. Due to this he was controlled heart catheterization CONSENT: I have discussed the risks, benefits and alternative therapies for the above-mentioned procedure, sedation/analgesia and necessary blood product administration (if indicated, as they pertain to this patient). The patient has indicated understanding and acceptance of the risks and procedures discussed. Conscious Sedation: Patient's ECG, heart rate, blood pressure, pulse oximetry was monitored throughout the duration of procedure under the direct supervision. [1] mg Versed and [50] mg Fentanyl were used for induction of moderate conscious sedation. Total duration of 27 minutes. PROCEDURE:After the risks, benefits and alternatives of the above mentioned procedure explained in detail with the patient, informed consent was obtained. Ultrasound was used to identify the radial artery. Patient was taken to the catheterization lab and prepped and draped in usual sterile fashion. 1% lidocaine was infiltrated over the right radial artery. A 6-Maldivian sheath was placed in the right radial artery using modified Seldinger technique. The sheath was flushed 5 mg verapamil was administered intra-arterially. J tipped wire was advanced under fluoroscopic guidance. Once the wire tip reached aortic root [6500] units of IV heparin was given. Over the wire JL3.5 diagnostic catheter was advanced. Wire was removed, catheter was flushed and manipulated under fluoroscopy to selectively engaged the left coronary ostium. Left coronary angioplasty was performed in different angiographic projections. This catheter was exchanged for a JR4 diagnostic catheter over the wire. The catheter was flushed and manipulated to cross the aortic valve. LV pressures were obtained. Pullback was performed across aortic valve and catheter was manipulated to selectively engage the right coronary ostium under fluoroscopic guidance. Right coronary angiography was performed in different angiographic projections. Catheter was removed over the wire. Radial sheath was flushed. The right radial sheath was removed and a TR band was placed with excellent patent hemostasis was achieved. The patient tolerated the procedure well. Patient was transported back to the post catheterization holding area in stable condition. Angiographic images were reviewed in detail. HEMODYNAMICS: Aortic Pressure: 94/56 mmHg. LV pressure: 88/2 mmHg. LVEDP 10 mmHg. SELECTIVE CORONARY ARTERIOGRAPHY: LEFT MAIN: The left main is a large caliber vessel which bifurcates into the LAD and circumflex. There is no significant stenosis. LEFT ANTERIOR DESCENDING CORONARY ARTERY: LAD is a large caliber vessel. Proximal LAD appears angiographically normal. After mid segment, LAD becomes small caliber and reaches up to the apex and wraps around it. It appears that mid and distal LAD has long diffuse disease. BRIANNA-3 flow. Diagonal branch appears angiographically normal LEFT CIRCUMFLEX CORONARY ARTERY: It is nondominant vessel. Left circumflex is a moderate caliber vessel it appears angiographically normal. It gives rise to 2 OM branches which appears angiographically normal RIGHT CORONARY ARTERY: Dominant vessel. The right coronary artery is a large caliber vessel which gives off a PDA and PLV branch. It appears angiographically normal. IMPRESSION: Diffuse tubular disease in distal LAD not amenable for intervention Nonischemic cardiomyopathy Persistent atrial fibrillation Normal LVEDP PLAN: Discharge on heart failure medications including Entresto, Farxiga, metoprolol Discontinue warfarin and aspirin, start Eliquis 5 mg twice a day Obtain stat CBC, BMP. 80 mL per hour for 4 hours of normal saline Discharge home in next 4 hours if CBC and BMP are normal Performing Physician Mike Reeves MD
[2023-01-06] MEDS ORDERED: RX INFO: IV CONTRAST WAS GIVEN 1 EACH MISC MISCELLANE PRN (13:13)
[2023-01-06] MEDS ORDERED: SODIUM CHLORIDE 0.9% 1,000 ML IV SCH (13:15)
--- NOTE | 2023-01-06 14:41 | P.DS ---
Providers Date of admission: 12/30/22 17:36 Expected date of discharge: 01/06/23 Attending physician: Ashleigh Leos MD Consults: 01/01/23 09:01 Consult Physician Routine Consulting Provider: Mike Reeves Consult Reason/Comments: Systolic CHF, apical hypokinesis Do you want consulting provider notified?: Yes Primary care physician: [facility] Course: Pt has no complaints today. Reports improvement in dyspnea. Gen: awake, alert HEENT: normocephalic, atraumatic, good hearing acuity, moist mucous membranes Resp: good air exchange, breathing comfortably with no accessory muscle use CVS: good distal perfusion x 4, GI: soft, NTTP, ND : no SPT, no CVAT, morrell catheter not present MSK: bilateral pitting edema, no clubbing Neuro: non-focal, moving all extremities Psych: cooperative, euthymic mood Hospital Course: Patient is a 72-year-old male with a PMH of A. fib on Coumadin, chronic lower extremity edema (unknown cause as per patient) on Lasix, prostate cancer status post prostatectomy who presents to the emergency room with complaints of lower extremity swelling and redness, with shortness of breath. Patient reports gradually worsening lower extremity edema over the past 1 year despite compliance with oral Lasix. Denies ever being diagnosed with congestive heart failure. Also reports having an abrasion on the right anterior leg multiple times from a chair he was using over the past 2 weeks resulting in painful redness and swelling of the right leg. Denies chest discomfort, shortness of breath, cough, fever, chills, nausea, vomiting, diaphoresis, or dizziness. Reports ambulating without assistive devices at home but occasionally using a cane outside. In the emergency room, chest x-ray revealed bronchial wall thickening with mild interstitial prominence, concerning for pneumonitis. EKG revealed A. fib with RVR at 100 bpm with an incomplete right bundle branch block with T-wave inversion in lead V3. Laboratory evaluation was remarkable for troponin less than 0.012, proBNP 593, glucose 129, lactic acid 1.6, and potassium 5.2 (hemolyzed), and INR 2.5. 12/31 Continues to report RLE > LLE swelling and redness. Otherwise no complaints. Continued on Lasix IV and Rocephin. 10/13 Improved redness and swelling of the BL LE. Echo done shows EF 40-45% with mild LVH and large apical hypokinesis. Patient denies any history of [place] or CHF. Cardiology consulted. 01/02 Improved swelling. Awaiting cardiology consultation. 01/03 Cardiology recommends increasing Metoprolol, start Entresto, start Farxiga, start Bumex, DC lasix, possibly heart cath on Wednesday. Son updated on the plans. 01/04 Patient was seen and examined. He reports slightly worsened swelling in his lower extremities. Working with PT and OT. He has completed 5 days of Rocephin for treatment of cellulitis, will switch to Keflex for 2 days to complete a total of 7 days. Awaiting cardiology recommendations for when cardiac cath should be done. Anticipate discharge after cardiac clearance. 01/05 Discussed with cardiology, patient will undergo LHC tomorrow AM. 01/06 Pt udnerwent LHC with cardiology which was clean. He will be discharged and f/u with cardiology outpatient. Assessment/Plan: Right lower extremity cellulitis - patient was on ceftriaxone, then transitioned to keflex, completed abx course on 01/06 Acute HFrEF with apical hypokinesis A. fib, on Coumadin (therapeutic INR) - started on bumex, lipitor, jardiance, entresto during admission and prescribed on discharge - metoprolol was increased from 100mg daily to BID - lasix and warfarin were discontinued I spent 40 minutes coordinating this discharge on 01/06 Patient Condition at Discharge: Good Plan - Discharge Summary Discharge Rx Participant: No New Discharge Prescriptions: New Metoprolol Tartrate [Lopressor] 100 mg PO BID #180 tablet Apixaban [Eliquis] 5 mg PO BID #180 tab Sacubitril/Valsartan [Entresto 24 mg-26 mg Tablet] 1 each PO BID #180 tab Atorvastatin [Lipitor] 40 mg PO HS #90 tab Bumetanide [BUMEX] 1 mg PO DAILY #90 tab Empagliflozin [Jardiance] 10 mg PO DAILY #90 tablet Continue Cholecalciferol [Vitamin D3 (25 Mcg = 1000 Iu)] 50 mcg PO DAILY Zinc Gluconate [Zinc] 50 mg PO DAILY Latanoprost [Latanoprost 0.005%] 1 drop BOTH EYES HS Discontinued Metoprolol Tartrate [Lopressor] 100 mg PO DAILY Furosemide [Lasix] 40 mg PO BID@0500,1130 Aspirin EC [Ecotrin Low Dose] 81 mg PO DAILY Metoprolol Tartrate [Lopressor] 50 mg PO HS Warfarin [Coumadin] 7 mg PO HS Discharge Medication List Cholecalciferol [Vitamin D3 (25 Mcg = 1000 Iu)] 50 mcg PO DAILY 12/30/22 [History] Latanoprost [Latanoprost 0.005%] 1 drop BOTH EYES HS 12/30/22 [History] Zinc Gluconate [Zinc] 50 mg PO DAILY 12/30/22 [History] Apixaban [Eliquis] 5 mg PO BID #180 tab 01/06/23 [Rx] Atorvastatin [Lipitor] 40 mg PO HS #90 tab 01/06/23 [Rx] Bumetanide [BUMEX] 1 mg PO DAILY #90 tab 01/06/23 [Rx] Empagliflozin [Jardiance] 10 mg PO DAILY #90 tablet 01/06/23 [Rx] Metoprolol Tartrate [Lopressor] 100 mg PO BID #180 tablet 01/06/23 [Rx] Sacubitril/Valsartan [Entresto 24 mg-26 mg Tablet] 1 each PO BID #180 tab 01/06/23 [Rx] Follow up Appointment(s)/Referral(s): Mike Reeves MD [Medical Doctor] - 2 Weeks [facility] [Primary Care Provider] - 01/14/23 2:30 pm Activity/Diet/Wound Care/Special Instructions: Entresto and Farxiga are NOT covered at [facility]. Eliquis script can be filled with the free trial coupon. Eliquis, Entresto, and Jardiance scripts were all faxed to [facility]. Discharge Disposition: HOME SELF-CARE
[2023-01-06 14:57] LABS: INR 1.3 (<1.2); Prothrombin Time 13.6 sec (10.0-12.5)
[2023-01-06 17:28] VITALS: BP 98/61; PULSE 56; RESP 18; TEMP 97.9
[2023-01-06] MEDS: ATORVASTATIN 40 MG TAB PO SCH (18:41)
[2023-01-07] MEDS ORDERED: ASPIRIN 81 MG PO SCH (09:00)
== END 2023-01-06 19:09 | disposition home or self-care (01) | DRG 637 ==
LOC: EC 12:04 → 4SSUR 17:36 → 3SCARD 12-31 01:22 → 4SSUR 12-31 18:31 → 3SCARD 01-06 15:56
PROVIDERS: ADMIT Family Medicine; ATTEND Family Medicine
PROC: B2111ZZ Fluoroscopy of Multiple Coronary Arteries using Low Osmolar Contrast (ICD-10-PCS; 2023-01-06)
PROC: 4A023N7 Measurement of Cardiac Sampling and Pressure, Left Heart, Percutaneous Approach (ICD-10-PCS; principal; 2023-01-06 12:00)
DX: E11.628 Type 2 diabetes mellitus with other skin complications (principal); I50.23 Acute on chronic systolic (congestive) heart failure; L97.929 Non-pressure chronic ulcer of unspecified part of left lower leg with unspecified severity; I42.8 Other cardiomyopathies; I83.209 Varicose veins of unspecified lower extremity with both ulcer of unspecified site and inflammation; I48.19 Other persistent atrial fibrillation; L97.919 Non-pressure chronic ulcer of unspecified part of right lower leg with unspecified severity; L03.115 Cellulitis of right lower limb; L03.116 Cellulitis of left lower limb; Z68.41 Body mass index [BMI] 40.0-44.9, adult; I11.0 Hypertensive heart disease with heart failure; J44.9 Chronic obstructive pulmonary disease, unspecified; E66.8 Other obesity; I45.10 Unspecified right bundle-branch block; M19.90 Unspecified osteoarthritis, unspecified site; S80.811A Abrasion, right lower leg, initial encounter; H42 Glaucoma in diseases classified elsewhere; W22.03XA Walked into furniture, initial encounter; Z96.651 Presence of right artificial knee joint; Z79.01 Long term (current) use of anticoagulants; Z87.891 Personal history of nicotine dependence; Z28.310 Unvaccinated for COVID-19; Z85.46 Personal history of malignant neoplasm of prostate; Z79.82 Long term (current) use of aspirin; Z91.040 Latex allergy status; Z88.8 Allergy status to other drugs, medicaments and biological substances; Z91.048 Other nonmedicinal substance allergy status; Z90.79 Acquired absence of other genital organ(s); Z79.899 Other long term (current) drug therapy; E11.622 Type 2 diabetes mellitus with other skin ulcer; E11.39 Type 2 diabetes mellitus with other diabetic ophthalmic complication
CPT/HCPCS: 36415; 71046; 80048; 80053; 83605; 83735; 83880; 84484; 85025; 85027; 85610; 85652; 85730; 86140; 87040; 93005; 93306; 96365; 96366; 96368; 99285

== ENCOUNTER → 2023-02-03 | Outpatient (CLI) | payer MEDICARE, OTHER ==
[2023-02-03 12:56] LABS: African American GFR (CKD) >90 (>60 ml/min/1.73 sqM); Anion Gap 12 mmol/L; Blood Urea Nitrogen 27 mg/dL (9-20); Calcium 9.7 mg/dL (8.4-10.2); Carbon Dioxide 24 mmol/L (22-30); Chloride 102 mmol/L (98-107); Glucose 114 mg/dL (74-99); Magnesium 2.4 mg/dL (1.6-2.3); Non-African American GFR(CKD) 81 (>60 ml/min/1.73 sqM); Potassium 5.2 mmol/L (3.5-5.1); Sodium 138 mmol/L (137-145)
[2023-02-03 13:04] LABS: NT-Pro-B-Type Natriuretic Pept 595 pg/mL
[2023-02-03 16:19] LABS: MCH 28.9 pg (27.0-32.0); MCHC 32.6 g/dL (32.0-37.0); MCV 88.6 FL (80.0-97.0); Mean Platelet Volume 10.9 FL (9.5-12.2); NRBC Per 100 WBC 0 X 10*3/uL (0.00-0.01); Platelet Count 220 X 10*3/uL (140-440); RBC 5.19 X 10*6/uL (4.40-5.60); RDW 14.4 % (11.5-14.5); WBC 11.38 X 10*3/uL (4.50-10.00)
== END | disposition home or self-care (01) ==
LOC: LABWHC1 11:14
PROVIDERS: ATTEND Student in an Organized Health Care Education/Training Program
DX: I50.9 Heart failure, unspecified (principal); E78.5 Hyperlipidemia, unspecified; N18.9 Chronic kidney disease, unspecified; D63.1 Anemia in chronic kidney disease
CPT/HCPCS: 36415; 80048; 83735; 83880; 85027

== ENCOUNTER 2023-06-28 06:22 | Day surgery (SDC) | payer MEDICARE, OTHER ==
[2023-06-25 09:20] VITALS: BMI 44.7
[~2023-06-28 06:22] MED LIST: SODIUM CHLORIDE 0.9% 1,000 ML IV SCH
[2023-06-28] MEDS: LACTATED RINGERS 1,000 ML IV SCH (07:00)
[2023-06-28 07:22] VITALS: TEMP 97
[2023-06-28] MEDS: BENZOCAINE SPRAY 1 CAN TOPICAL ONE (07:27)
[2023-06-28] MEDS ORDERED: PROPOFOL 10 MG/ML 20 ML VIAL IV ONE (07:30)
[2023-06-28] MEDS ORDERED: LIDOCAINE 2% (PF) 20 MG/ML 5 ML VIAL ONE (07:30)
[2023-06-28] MEDS ORDERED: ATROPINE SULFATE 0.1 MG/ML 10ML SYRINGE ONE (07:30)
[2023-06-28 07:45] LABS: Glucose,Whole Blood 129 mg/dL (70-110)
[2023-06-28 07:50] LABS: African American GFR (CKD) 83 (>60 ml/min/1.73 sqM); Anion Gap 9 mmol/L; Blood Urea Nitrogen 27 mg/dL (9-20); Calcium 9.3 mg/dL (8.4-10.2); Carbon Dioxide 22 mmol/L (22-30); Chloride 106 mmol/L (98-107); Glucose 126 mg/dL (74-99); Non-African American GFR(CKD) 72 (>60 ml/min/1.73 sqM); Sodium 137 mmol/L (137-145)
[2023-06-28 07:55] LABS: Potassium 5.4 mmol/L (3.5-5.1)
--- NOTE | 2023-06-28 08:33 | P.TEE ---
Date of Procedure: 06/28/23 Description of Procedure(s): Procedure performed: 1. Transesophageal Echocardiogram. 2. Synchronized Cardioversion. Indications: Persistent atrial fibrillation, congestive heart failure Consent: I have discussed the risks, benefits and alternative therapies for the above-mentioned procedure. The patient has indicated understanding and acceptance of the risks of the procedure. Signed consent was obtained and was placed in the paper chart. Moderate conscious sedation: Moderate conscious sedation was administered by anesthesia, see separate report. Procedural Steps: Timeout was performed in usual fashion. Patient's heart rate, blood pressure, oxygen saturation and ECG were monitored. After achieving appropriate moderate conscious sedation, TEDDY TEDDY probe was advanced without difficulty and without any immediate complications to the esophagus. TEDDY study was performed with color flow doppler, pulsed wave doppler and continuous wave doppler. Agitated saline bubbles were injected to assess for any intra-atrial shunt. The probe was then removed. SYNCHRONIZED CARDIOVERSION After making sure that there is no evidence of intracardiac thrombus, pacer pads were placed and secured on patients chest and back. Synchronized cardioversion was perfromed using 200 J. 2 attempt. Sinus rhythm was confirmed with a 12 lead EKG. Patient tolerated the procedure well. Patient was transferred to the post procedure area in stable and satisfactory condition. Complications: none Blood loss: none FINDINGS Left Atrium: Severe left atrial dilatation. No evidence of mass or thrombus seen Left Atrial Appendage: No evidence of thrombus or mass seen in MARNIE. Low velocities in left atrial appendage Inter atrial septum: Intact inter-atrial septum. No evidence of atrial septal defect or patent foramen ovale on color doppler. Left Ventricle: Mildly reduced global LV systolic function Right Atrium: Severe right atrial dilatation. Right Ventricle: Moderate right ventricular dilatation with mildly reduced systolic function. Aortic Valve: Structurally normal Trileaf[place], no significant calcification. No significant stenosis or regurgitation on color doppler assessment. Mitral Valve: Moderate functional mitral regurgitation Pulmonic Valve: Not well visualized. Tricuspid Valve: Structurally normal. Ascending aorta, Aortic root and Aortic arch: Mild intimal thickening. Normal size ascending aorta and aortic root. Descending aorta: Mild intimal thickening. CONCLUSION: No evidence of thrombus in left atrial appendage or left atrium. Severe biatrial dilatation Moderately dilated right ventricle with mildly reduced systolic function Mildly reduced global LV systolic function Moderate functional mitral regurgitation Successful cardioversion second attempt, 200 J. Patient had sinus bradycardia after the cardioversion for which he was given a troponin. He was also noticed to have first-degree AV block. Patient is on metoprolol succinate 100 mg daily prior to the cardioversion. We will discharge him on metoprolol succinate 50 mg daily to take. Will continue his other cardiac medications which amiodarone and eliquis f/u o/p in 1 week Mike Reeves MD, RPVI, FACC Thank you for allowing [facility] to participate in this patient's care. Feel free to reach out in case of any followup questions.
[2023-06-28 09:13] LABS: Glucose,Whole Blood 135 mg/dL (70-110)
[2023-06-28 09:26] VITALS: RESP 16
[2023-06-28 10:54] VITALS: BP 125/55; PULSE 55
== END 2023-06-28 10:49 | disposition home or self-care (01) ==
LOC: OR 06:22
PROVIDERS: ATTEND Student in an Organized Health Care Education/Training Program
DX: I48.19 Other persistent atrial fibrillation (principal); I11.0 Hypertensive heart disease with heart failure; I50.9 Heart failure, unspecified; I34.0 Nonrheumatic mitral (valve) insufficiency; E66.9 Obesity, unspecified; E11.9 Type 2 diabetes mellitus without complications; Z79.899 Other long term (current) drug therapy; Z79.02 Long term (current) use of antithrombotics/antiplatelets; Z79.01 Long term (current) use of anticoagulants; Z88.8 Allergy status to other drugs, medicaments and biological substances; Z68.42 Body mass index [BMI] 45.0-49.9, adult
CPT/HCPCS: 93312; 93320; 93325; 92960; 80048; J0461; J2704; J2001